=== PATIENT | male | born 1980 | race Caucasian/White ===

== ENCOUNTER 2019-12-16 12:58 | Inpatient (IN) | payer OTHER, MEDICARE, SELFPAY ==
[2019-12-16] VITALS (11 sets, daily range): BP systolic 112–145; BP diastolic 63–107; PULSE 80–142; RESP 10–18; TEMP 36.7–37.1; O2SAT 90–97; BMI 30.4
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
--- NOTE | 2019-12-16 13:06 | CT_ITS ---
EXAMINATION: CT BRAIN AND CT CERVICAL SPINE WITHOUT CONTRAST CLINICAL INFORMATION: Fall. COMPARISON: None TECHNIQUE: 5 mm thin axial and reformatted 2 mm thin sagittal and coronal images of brain were obtained without contrast. 3 mm thin axial and reformatted 2 mm thin sagittal and coronal images of cervical spine were obtained. DLP: 1599 mGy-cm FINDINGS: BRAIN: There is no acute intra-axial, extra-axial bleed, masses or midline shift. There is no acute infarction in evolution. The serrano to white matter differentiation is maintained. The lateral ventricles are symmetrical in size and shape. There is no enlargement. Bone windows reveal no calvarial abnormality. Bilateral paranasal sinuses and mastoid air cells are well aerated. There is no scalp lesion seen. CERVICAL SPINE: On sagittal reconstructed images there is maintained cervical lordosis. The vertebral heights, alignment and disc heights are normal. There is no visible acute fracture, dislocation or subluxation. The craniovertebral junction and the C1-C2 alignment is normal. There is mild posterior and ventral spondylosis C5-C6 disc level. The prevertebral soft tissues are normal. The airway is widely patent. There are numerous bilateral neck lymph nodes which appear within normal limits. The thyroid lobes are symmetrical. The central airway is widely patent. Bilateral mastoid sinuses are well aerated and clear. CT/CT cervical spine wo con IMPRESSION: No acute intracranial process seen. There is no acute fracture, dislocation or subluxation of cervical spine. Bilateral reactive lymph nodes, the largest lymph node level 3 and level 4 measures 7 mm in short axis.
--- NOTE | 2019-12-16 13:07 | ECG_ITS ---
Test Reason : OD Blood Pressure : / mmHG Vent. Rate : 132 BPM Atrial Rate : 092 BPM P-R Int : 000 ms QRS Dur : 114 ms QT Int : 344 ms P-R-T Axes : 000 087 -12 degrees QTc Int : 509 ms Atrial fibrillation with rapid ventricular response Intra-ventricular conduction delay Nonspecific ST abnormality Abnormal ECG No previous ECGs available Referred By: Marie Calderón Electronically Signed By:AMRIT DUVAL MD
--- NOTE | 2019-12-16 13:09 | XR_ITS ---
EXAMINATION: XR CHEST CLINICAL INFORMATION: Evaluate aspiration. COMPARISON: None TECHNIQUE: Frontal view of the chest was obtained. FINDINGS: The lungs are well-expanded and clear of acute process. The heart size and pulmonary vascularity is normal. No gross bony abnormality seen. XR/XR chest 1V IMPRESSION: Unremarkable chest exam.
[2019-12-16 13:18] LABS: Glucose, Whole Blood 185 mg/dL (60-115)
--- NOTE | 2019-12-16 13:24 | PC.NURSE ---
PT STATES HE HAS A RECENT TBI WITH SUBSEQUENT SEIZURES. HE STATES HE THINKS TODAY'S EVENTS MAY HAVE BEEN SEIZURE RELATED.
[2019-12-16 13:27] LABS: MANUAL DIFF FLAG NO
[2019-12-16 13:28] LABS: Basophils Absolute Auto 0.1 X10*3/uL (0.0-0.2); Basophils Percent Auto 0.9 % (0-2); Eosinophils Absolute Auto 0.1 X10*3/uL (0.0-0.4); Eosinophils Percent Auto 1.7 % (0-4); Hematocrit 52.2 % (42-52); Hemoglobin 16.9 g/dl (14.0-18.0); Imm Gran Abs Auto 0.06 X10*3/uL (0.00-0.03); Imm Gran Pct Auto 0.8 % (0.0-0.4); Lymphocytes Absolute Auto 3.1 X10*3/uL (1.2-4.9); Lymphocytes Percent Auto 40.1 % (20-40); Mean Corpuscular HGB Conc 32.4 g/dl (31.0-36.0); Mean Corpuscular Hemoglobin 30.6 pg (27.0-33.0); Mean Corpuscular Volume 94.6 fL (80-98); Mean Platelet Volume 8.6 fL (9.4-12.4); Monocytes Absolute Auto 0.4 X10*3/uL (0.1-1.2); Monocytes Percent Auto 5.1 % (2-11); Neutrophils Absolute Auto 3.9 X10*3/uL (2.0-8.3); Neutrophils Percent Auto 51.4 % (45-73); Platelet Count 289 X10*3/uL (160-400); Red Blood Count 5.52 X10*6/uL (4.60-5.80); Red Cell Distribution Width 15.4 % (11.0-16.0); White Blood Count 7.7 X10*3/uL (4.8-10.8)
[2019-12-16 13:33] LABS: INTERNATIONAL NORM RATIO 0.8 (0.9-1.1)
[2019-12-16 13:36] LABS: Partial Thromboplastin Time 26.4 SEC (24.1-38.0)
[2019-12-16 14:02] LABS: HCO3 VBG 25 mmol/L; PCO2 VBG 86 mmhg; PO2 VBG 41 mmhg
[2019-12-16 14:03] LABS: Base Excess VBG -7.6 mmol/L; Oxygen Saturation VBG 53.5 %
[2019-12-16] MEDS: 0.9 % Sodium Chloride 1,000 ML 999 ML IVCONT ×3 (14:03→18:00)
[2019-12-16] MEDS: dilTIAZem HCL 50 MG/10 ML VIAL 10 MG IVPUSH (14:04)
[2019-12-16] MEDS: ondansetron HCL 4 MG/2 ML VIAL IVPUSH ×3 (14:04→22:38)
[2019-12-16 14:05] LABS: pH VBG 7.08 (7.32-7.43)
--- NOTE | 2019-12-16 14:08 | CT_ITS ---
EXAMINATION: CT ANGIOGRAM OF THE CHEST WITH AND WITHOUT CONTRAST (CT PULMONARY ANGIOGRAM FOR PE) CLINICAL INFORMATION: Reason for Exam syncope, new onset afib r/o PE, dyspnea COMPARISON: Previous chest x-ray from earlier the same day TECHNIQUE: Prior to contrast administration, noncontrast localization images were obtained. Subsequently, multidetector volumetric imaging was performed from the thoracic inlet to below the diaphragms following the administration of 65 mLOmnipaque 350 intravenous contrast. No contrast reaction reported Sagittal, coronal, and MIP oblique sagittal reformatted images were obtained on the CT workstation, uploaded to PACS, and reviewed. This CT examination was performed using dose optimization techniques as appropriate, variously including the following: *Automated exposure control *Adjustment of mA and/or kV according to patient size (this includes techniques or standardized protocols for targeted exams where dose is matched to indication/reason for exam; i.e. extremities or head) *Use of iterative reconstruction technique Total exam dose-length product 569 mGy-cm FINDINGS: QUALITY OF STUDY/CONTRAST BOLUS: Satisfactory. PULMONARY ARTERIES: No central or segmental pulmonary emboli. THORACIC AORTA: No aneurysm or dissection. LUNG: There is atelectasis or small infiltrates at the lung bases. The lungs are otherwise clear. PLEURA: No pleural effusion or pneumothorax. MEDIASTINUM: The heart is slightly enlarged. No pericardial effusion. No hilar or mediastinal lymphadenopathy. No evidence of septal bowing or right heart strain. CHEST WALL/AXILLA: No axillary or internal mammary lymphadenopathy. OSSEOUS STRUCTURES: There are healing left posterior lateral sixth and seventh rib fractures. Bony structures are otherwise unremarkable. UPPER ABDOMEN: The liver is low in attenuation suggestive of fatty infiltration. No reflux of contrast into the hepatic veins to suggest elevated right heart pressures. CT/CT angio chest PE protocol IMPRESSION: No evidence of pulmonary embolism. Bilateral lower lobe atelectasis or small infiltrates. Slightly enlarged heart. Healing left rib fractures. Probable fatty liver. VTE: negative
[2019-12-16] MEDS: dilTIAZem HCL 125 MG in 0.9 % Sodium Chloride 100 ML 10 MG IVCONT (14:37)
[2019-12-16 14:43] LABS: Pt Ventilation O2% ROOM AIR
[2019-12-16 14:49] LABS: ABG PCO2 58 mmhg (32-45); pH ABG 7.21 (7.35-7.45)
[2019-12-16 14:50] LABS: Base Excess ABG -6.6; HCO3 ABG 22 mmol/l (22-26); Oxygen Saturation ABG 72.8 %
[2019-12-16 14:52] LABS: PO2 ABG 48 mmhg (83-108)
[2019-12-16 14:53] LABS: Ethanol 317 mg/dL
--- NOTE | 2019-12-16 14:53 | PC.NURSE ---
PT BECOMES HYPOXIC INTO THE 70S HE IS AROUSABLE BUT DIFFICULT TO KEEP AWAKE HE WAS PLACED ON 02 NC SUPPORT
[2019-12-16 14:57] LABS: Alanine Aminotransferase 199 U/L (0-40); Albumin Level 4.9 g/dL (3.5-5.0); Alkaline Phosphatase 100 U/L (39-117); Anion Gap 23 (12-20); Aspartate Amino Transferase 213 U/L (5-37); Bilirubin Direct 0.2 mg/dL (0.0-0.5); Bilirubin Total 0.3 mg/dL (0.0-1.0); Blood Urea Nitrogen 12 mg/dL (9-16); Calcium 7.9 mg/dL (8.4-10.2); Carbon Dioxide 24 mmol/L (22-29); Chloride 102 mmol/L (96-108); Creatinine Clr Calc Pharmacy 80.9; Estimated Glomerular Filt Rate 48; Glucose Random 145 mg/dL (60-115); Lipase 45 U/L (8-78); Magnesium 2.3 mg/dL (1.6-2.6); Potassium 3.8 mmol/l (3.3-5.1); Sodium 145 mmol/L (135-145); Total Protein 7.8 g/dL (6.5-8.0)
[2019-12-16] MEDS: iohexoL 350 MG/ML 100 ML INFUS..BTL IV (15:34)
[2019-12-16 16:41] LABS: Troponin-I High Sensitivity 19.9 ng/L (<3.5-35.0)
[2019-12-16 16:51] LABS: Lactic Acid 3.8 mmol/L (0.5-2.0)
[2019-12-16 17:15] LABS: Acetaminophen LAB < 1 mcg/mL (<30); Salicylate < 5.0 mg/dL (15-30)
[2019-12-16] MEDS: Piperacillin Sodium/Tazobactam 3.375 GM in 0.9 % Sodium Chloride 50 ML IV (17:59)
[2019-12-16] MEDS: 0.9 % Sodium Chloride 1,000 ML 500 ML IVCONT (18:04)
[2019-12-16] MEDS: Famotidine/PF 20 MG/2 ML VIAL IVPUSH (18:13)
[2019-12-16] MEDS: Morphine Sulfate 4 MG/ML CARTRIDGE IVPUSH (18:13)
[2019-12-16] MEDS: Metoprolol Tartrate 5 MG/5 ML VIAL IVPUSH (18:13)
--- NOTE | 2019-12-16 18:23 | PM.EVENT ---
Event Note Event Note: Patient seen and examined. Case discussed with MICHELLE Caba. Agree with her history and physical + plan as documented above in brief, 39-year-old male with a significant psychiatric history including PTSD and severe anxiety who presented to the hospital when he was found unresponsive by his friend. Upon arrival to the emergency room noted to be significantly tachycardic and with respiratory acidosis along with alcohol level greater than 300. ruled out for pulmonary embolism with a negative CTA, EKG consistent with atrial fibrillation with rapid ventricular response and started on Cardizem drip, given antibiotics for possible aspiration coverage, admission requested for multiple issues. Plan 1. A. fib w rvr -- cardizem gtt, trial of metoprolol; cardiology consult 2. Respiratory Acidosis -- likely 2/2 to excessive sedation from ? alcohol + benzos/gabapentin; he denies intentional ingestion. He denies illicit substances including opiates / cocaine 3. Chronic pain - IV morphine for now 4. EtOH intoxication -- monitor for withdrawal, phenobarb if needed 5. Mood -- continue his benzos 6. Remainder per H&P
[2019-12-16 18:30] LABS: Reflex Lactate? Lactic Acid Added
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
[2019-12-16 18:47] LABS: B Type Natriuretic Peptide < 10 pg/mL (<100)
[2019-12-16 18:59] LABS: SARS COV2 PCR INHOUSE NEGATIVE (Negative)
[2019-12-16 19:04] LABS: Thyroid Stimulating Hormone 1.32 mIU/mL (0.32-4.0)
--- NOTE | 2019-12-16 19:21 | PC.NURSE ---
change of shift report received from Castro martinez. pt appears to be in a nsr. 12 lead ekg obtained and confirmed nsr, dr west made aware and cardizem drip has been turned off. pt is making attempts to stand at the end of the bed while still attached to lines and cords. pt has been told mult times and forgets and is sorry. vitals stable.
--- NOTE | 2019-12-16 20:13 | PC.NURSE ---
nurse to nurse report given to Berenice martinez. hr remains at 81 nsr. vitals stable. pt sleeping on and off. 4l nc needed for sat drop to 84% on room air. pt has sleep apnea and states its the pain to his chest on inhale. Pt repositioned hob elevated and sat improved. pt is also a mouth breather.
[2019-12-16 21:50] LABS: ~Lactic Acid-LAB USE ONLY 3.4 mmol/L (0.5-2.0)
[2019-12-16 21:59] LABS: Troponin-I High Sensitivity 33.7 ng/L (<3.5-35.0)
[2019-12-16] MEDS: Lactated Ringers 1,000 ML 100 ML IVCONT (22:36)
[2019-12-16] MEDS: Gabapentin 600 MG TABLET PO (22:37)
[2019-12-16] MEDS: Morphine Sulfate 2 MG/ML CARTRIDGE IVPUSH (22:38)
[2019-12-16 23:16] LABS: Reflex Lactate? 2 Y
--- NOTE | 2019-12-17 | ECG_ITS ---
Test Reason : REPEAT Blood Pressure : / mmHG Vent. Rate : 078 BPM Atrial Rate : 078 BPM P-R Int : 184 ms QRS Dur : 128 ms QT Int : 386 ms P-R-T Axes : 062 070 040 degrees QTc Int : 440 ms Normal sinus rhythm Non-specific intra-ventricular conduction block Otherwise normal ECG When compared with ECG of 16-DEC-2019 13:06, Sinus rhythm has replaced Atrial fibrillation Vent. rate has decreased BY 54 BPM T wave inversion no longer evident in Inferior leads Referred By: Marie Calderón Electronically Signed By:AMRIT DUVAL MD
[2019-12-17] MEDS: 0.9 % Sodium Chloride Flush 3 ML SYRINGE IVFLUSH ×3 (01:01→16:22)
[2019-12-17] MEDS: Ampicillin Sodium/Sulbactam Na 1.5 GM in 0.9 % Sodium Chloride 100 ML IV ×2 (01:01→06:15)
[2019-12-17] MEDS: LORazepam 2 MG/ML VIAL 1 MG IVPUSH (02:24)
[2019-12-17] MEDS: Morphine Sulfate 2 MG/ML CARTRIDGE IVPUSH ×2 (02:48→09:09)
[2019-12-17 04:00] VITALS: BP 177/91; PULSE 104; RESP 19; TEMP 37.1; O2SAT 96
[2019-12-17 06:20] LABS: Hematocrit 41.4 % (42-52); Hemoglobin 13.4 g/dl (14.0-18.0); Mean Corpuscular HGB Conc 32.4 g/dl (31.0-36.0); Mean Corpuscular Volume 92.8 fL (80-98); Mean Platelet Volume 8.8 fL (9.4-12.4); Platelet Count 242 X10*3/uL (160-400); Red Blood Count 4.46 X10*6/uL (4.60-5.80); Red Cell Distribution Width 15.6 % (11.0-16.0); White Blood Count 6.8 X10*3/uL (4.8-10.8)
[2019-12-17 06:55] LABS: Alanine Aminotransferase 139 U/L (0-40); Albumin Level 4.2 g/dL (3.5-5.0); Alkaline Phosphatase 71 U/L (39-117); Anion Gap 15 (12-20); Aspartate Amino Transferase 103 U/L (5-37); Bilirubin Direct 0.3 mg/dL (0.0-0.5); Bilirubin Total 0.5 mg/dL (0.0-1.0); Blood Urea Nitrogen 10 mg/dL (9-16); Calcium 7.3 mg/dL (8.4-10.2); Carbon Dioxide 28 mmol/L (22-29); Chloride 100 mmol/L (96-108); Estimated Glomerular Filt Rate > 60; Glucose Random 77 mg/dL (60-115); Potassium 4.2 mmol/l (3.3-5.1); Sodium 139 mmol/L (135-145); Total Protein 6.6 g/dL (6.5-8.0)
[2019-12-17 08:00] VITALS: BP 168/75; PULSE 99; RESP 18; TEMP 36.6; O2SAT 97
[2019-12-17] MEDS: Flu Vacc QS2020-21(6mos up)/PF 0.5 ML SYRINGE IM (09:01)
[2019-12-17] MEDS: Gabapentin 600 MG TABLET PO ×2 (09:01→21:38)
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
--- NOTE | 2019-12-17 10:07 | MHC.CM.PN ---
Male 39 dx afib rvr etoh withdrawal. Pt is independent. He lives with his . DP home no services careteam resources will provide transportation.
[2019-12-17] MEDS: ALPRAZolam 0.5 MG TABLET 1 MG PO ×3 (10:52→21:45)
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
[2019-12-17 12:00] VITALS: BP 127/72; PULSE 75; RESP 18; TEMP 36.6; O2SAT 98
--- NOTE | 2019-12-17 12:22 | MHC.CARE ---
CARE Team met with Pt secondary to consult placed for alcohol use, depression/anxiety/ptsd . Pt reported he is currently connected with providers through the [facility] in [place], [place]. Pt reports he is currently receiving telehealth appts 2-3 times a week for support Pt has been on pyschiatric medicatiosn for roughly the plast 10 plus years. Pt reports he needs them for chronic pain and his PTSD symptoms. Pt reports some depression over the past few weeks after a recent concussion and fall which limited his activity level. Pt reported he is considering getting a [employer] [facility] due to his recent falls and his working long hours Pt declined needing additional mental health support. Pt reported he would like to find ways to be more connected to the community as he relatively recently relocated to [facility] and Pt and t/w discussed following up with [facility] regarding the options they had.
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
[2019-12-17 15:37] VITALS: BP 139/71; PULSE 83; RESP 20; TEMP 36.8; O2SAT 94
[2019-12-17 19:16] VITALS: BP 131/87; PULSE 86; RESP 18; TEMP 36.6; O2SAT 96
[2019-12-17] MEDS: Metoprolol Tartrate 25 MG TABLET PO (21:38)
[2019-12-18] VITALS: BP 134/77; PULSE 64; RESP 18; TEMP 37; O2SAT 95
[2019-12-18] MEDS: 0.9 % Sodium Chloride Flush 3 ML SYRINGE IVFLUSH ×2 (02:59→09:09)
[2019-12-18 03:34] VITALS: BP 151/77; PULSE 76; RESP 18; TEMP 37.1; O2SAT 97
[2019-12-18] MEDS: ALPRAZolam 0.5 MG TABLET 1 MG PO ×3 (04:15→12:29)
[2019-12-18 07:18] VITALS: BP 122/73; BP 147/94; PULSE 86; PULSE 88; RESP 18; TEMP 36.1; TEMP 36.7; O2SAT 92; O2SAT 97
[2019-12-18 09:09] VITALS: PULSE 108
[2019-12-18] MEDS: Metoprolol Tartrate 25 MG TABLET PO (09:09)
[2019-12-18] MEDS: Gabapentin 600 MG TABLET PO (09:09)
--- NOTE | 2019-12-18 11:29 | MHC.CARE ---
CARE Team met with Pt. Pt gave t/w verbal permission to speak with [facility].
--- NOTE | 2019-12-18 11:44 | MHC.CM.PN ---
DC today with resources from [facility]. Home with family transportation.
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
== END 2019-12-18 12:34 | disposition home or self-care (01) | DRG 308 ==
LOC: HO.ED 16:05 → HO.IMC 18:35
PROVIDERS: Physician Assistant Medical; Admitting Provider Family Medicine; Emergency Provider Emergency Medicine; PCP Internal Medicine; Visit Provider Family Medicine
DX: I48.91 Unspecified atrial fibrillation (principal); J96.02 Acute respiratory failure with hypercapnia; J96.01 Acute respiratory failure with hypoxia; E87.2 Acidosis; N17.9 Acute kidney failure, unspecified; F10.121 Alcohol abuse with intoxication delirium; F10.131 Alcohol abuse with withdrawal delirium; F43.10 Post-traumatic stress disorder, unspecified; R00.0 Tachycardia, unspecified; F10.129 Alcohol abuse with intoxication, unspecified; R74.01 Elevation of levels of liver transaminase levels; G89.29 Other chronic pain; Z23 Encounter for immunization; Z87.820 Personal history of traumatic brain injury; Z86.711 Personal history of pulmonary embolism; Z20.828 Contact with and (suspected) exposure to other viral communicable diseases; Z79.899 Other long term (current) drug therapy
CPT/HCPCS: 36415; 70450; 71045; 71275; 72125; 80048; 80076; 80320; 82550; 82803; 82947; 83605; 83690; 83735; 83880; 84443; 84484; 85025; 85027; 85610; 85730; 87040; 90686; 93005; 99285; G0480; J0295; J2060; J2270; J2405; J2543; Q9967; U0003

== ENCOUNTER 2020-01-03 21:29 | Emergency (ER) | payer OTHER, MEDICARE, SELFPAY ==
[2020-01-03 21:49] VITALS: BP 145/96; BP 149/99; PULSE 108; PULSE 120; RESP 20; TEMP 36.8; O2SAT 96; BMI 30.8
--- NOTE | 2020-01-03 21:58 | CT_ITS ---
EXAMINATION: CT HEAD WITHOUT CONTRAST CT CERVICAL SPINE WITHOUT CONTRAST CLINICAL INFORMATION: Fall. COMPARISON: CT head and CT cervical spine dated 12/16/2019. TECHNIQUE: Contiguous axial imaging was performed from the skull base to vertex without intravenous administration of contrast. Contiguous axial CT images of the cervical spine were obtained without contrast. Sagittal and coronal reformats were provided and reviewed. This CT examination was performed using dose optimization techniques as appropriate, variously including the following: *Automated exposure control. *Adjustment of mA and/or kV according to patient size (this includes techniques or standardized protocols for targeted exams where dose is matched to indication/reason for exam; i.e. extremities or head). *Use of iterative reconstruction technique. DLP: 1477 mGy-cm FINDINGS: HEAD: There is no evidence of acute intracranial hemorrhage or territorial infarction. No abnormal mass effect or midline shift is seen. Noll-fs-zmroh matter differentiation is well preserved. No extra-axial fluid collections are identified. The ventricles are normal in size. There is no abnormal attenuation within the brain parenchyma. The osseous structures and soft tissues are normal. The mastoid air cells and visualized portions of the paranasal sinuses are well aerated. CERVICAL SPINE: Normal vertebral body alignment. The normal cervical lordosis is maintained. No acute fracture or subluxation. No loss of vertebral body or intervertebral disc height. Unremarkable facet joints. No lytic or blastic osseous lesion. Unremarkable prevertebral soft tissues. No abnormal soft tissue mass or fluid collection. Thyroid within normal limits. Visualized lung apices are clear. No significant central canal or neural foraminal stenosis. CT/CT cervical spine wo con IMPRESSION: HEAD: No acute intracranial hemorrhage or mass effect. CERVICAL SPINE: No acute fracture or subluxation.
--- NOTE | 2020-01-03 21:58 | ECG_ITS ---
Test Reason : FALL Blood Pressure : / mmHG Vent. Rate : 097 BPM Atrial Rate : 097 BPM P-R Int : 176 ms QRS Dur : 112 ms QT Int : 366 ms P-R-T Axes : 064 080 033 degrees QTc Int : 464 ms Normal sinus rhythm RSR' or QR pattern in V1 suggests right ventricular conduction delay Abnormal ECG When compared with ECG of 16-DEC-2019 19:12, QRS duration has increased Referred By: Christian Sanderson Electronically Signed By:AMRIT DUVAL MD
[2020-01-03 22:00] VITALS: BP 135/79; PULSE 90; RESP 16; O2SAT 97
--- NOTE | 2020-01-03 22:02 | ED_ITS ---
HPI - Fall General Chief Complaint: Fall Stated Complaint: FALL,ETOH Time Seen by Provider: 01/03/20 21:49 Source: patient and EMS Mode of arrival: EMS Limitations: altered mental status History of Present Illness HPI Narrative: 39-year-old male. History fall with alcohol use today. Patient is a very poor historian secondary to intoxication. Will re-evaluate once more sober as per EMS patient fell down stairs after drinking Location of injury - extremities: right: forearm (Abrasion) Severity: mild Related Data Home Medications Medication Instructions Recorded Confirmed Belsomra 1 tab PO BEDTIME PRN 12/16/19 12/16/19 gabapentin 1 tab PO BID 12/16/19 12/16/19 Previous Rx's Medication Instructions Recorded alprazolam 1 mg PO 5XD PRN #10 tab 12/18/19 metoprolol tartrate 25 mg PO BID #60 tab 12/18/19 tramadol [Ultram] 50 mg PO BID PRN #10 tab 01/04/20 Allergies Allergy/AdvReac Type Severity Reaction Status Date / Time No Known Allergies Allergy Verified 12/16/19 13:06 Review of Systems Review of Systems: Yes Unobtainable due to mental status (Patient intoxicated) [facility] Past Medical History Medical History Anxiety Concussion PTSD (post-traumatic stress disorder) Pulmonary embolus TBI (traumatic brain injury) Traumatic injury Surgical History S/P laparotomy Social History Social History Household Members: Spouse Housing: House Alcohol intake: current Smoking Status: Never smoker Advance Directives: No service: Yes Current occupational status: unemployed Physical Exam Vital Signs: Vital Signs: Last Vital Signs Temp 98.3 F 01/03/20 21:49 Pulse 90 01/03/20 22:00 Resp 16 01/03/20 22:00 BP 135/79 01/03/20 22:00 Pulse Ox 97 01/03/20 22:00 Body Mass Index 30.8 Vital signs noted. On EKG at 21:58 patient's heart rate decreased to 97 beats per minute Appearance: Alert. Oriented X to. No acute distress. Intoxicated Eyes: Pupils equal, round and reactive to light. Slightly dilated ENT: Pharynx normal. Neck: Normal inspection. Neck supple. No lymph nodes noted. No crepitus CVS: Normal heart rate and rhythm. Pulses normal. Normal S1 and S2 Respiratory: No respiratory distress. Breath sounds normal. No Wheezing. No rales Abdomen: Soft and nontender. No rigidity. No distention. good BS x4, present of surgical scar Skin: Skin warm and dry. Normal skin color. Normal skin turgor. Extremities: No lower extremity edema. Neurovascular intact to all extremities. No Lacerations. No Rash abrasion to right forearm however no ecchymosis no deformity Neuro: Oriented X 2. No motor deficit. No sensory deficit. Moving all extermities. Slow speech however follows commands Course Course Course Narrative: Patient with history of EtOH abuse. Patient has been seen here for rapid AFib will check EKG laboratory work, place C-collar and patient check for cervical spine fracture or intracranial hemorrhage and re-evaluate once more sober Reevaluation(s) Reevaluation #1: CT scan showed no hemorrhage or cervical fracture. Cervical collar removed by me Reevaluation #2: Patient re-evaluated now much more sober. Patient states has been drinking alcohol today and fell down stairs. Patient alert and oriented x3. Patient states will call family member to pick him up. I discussed with him results of exams including splint application Time: 00:29 Procedures Orthopedic Splinting/Casting Injury #1: Side: left Upper Extremity Injury Location: hand Upper Extremity Immobilizer: sugar tong splint (Left) Additional Comments: Splint applied by it help desk technician. Post splint neurovascular check intact MDM - Fall MDM Narrative Medical decision making narrative: 40-year-old male without focal intoxication status post fall. Negative CT scan of brain and neck. However fracture of the left hand with splint application Lab Data Result diagrams: 01/03/20 22:12 01/03/20 22:12 Labs: Lab Results 01/03/20 01/03/20 01/03/20 Range/Units 22:12 22:12 22:12 WBC 5.7 (4.8-10.8) X10*3/uL RBC 5.63 D (4.60-5.80) X10*6/uL Hgb 17.5 D (14.0-18.0) g/dl Hct 50.5 D (42-52) % MCV 89.7 (80-98) fL MCH 31.1 (27.0-33.0) pg MCHC 34.7 (31.0-36.0) g/dl RDW 14.3 (11.0-16.0) % Plt Count 261 (160-400) X10*3/uL MPV 8.6 L (9.4-12.4) fL Immature Gran % (Auto) 0.4 (0.0-0.4) % Neut % (Auto) 58.0 (45-73) % Lymph % (Auto) 30.9 (20-40) % [place] % (Auto) 8.6 (2-11) % Eos % (Auto) 0.7 (0-4) % Baso % (Auto) 1.4 (0-2) % Lymph # (Auto) 1.8 (1.2-4.9) X10*3/uL [place] # (Auto) 0.5 (0.1-1.2) X10*3/uL Eos # (Auto) 0.0 (0.0-0.4) X10*3/uL Baso # (Auto) 0.1 (0.0-0.2) X10*3/uL Abs Immat Gran (auto) 0.02 (0.00-0.03) X10*3/uL Absolute Neuts (auto) 3.3 (2.0-8.3) X10*3/uL Absolute Nucleated RBC 0.000 (0.0-0.012) X10*3/uL Nucleated RBC % (auto) 0.0 (0.0-0.2) /100WBC Sodium 143 (135-145) mmol/L Potassium 4.1 (3.3-5.1) mmol/l Chloride 101 (96-108) mmol/L Carbon Dioxide 21 L (22-29) mmol/L Anion Gap 25 H (12-20) BUN 11 (9-16) mg/dL Creatinine 1.07 (0.5-1.4) mg/dL Estim Creat Clear Calc 124.1 Estimated GFR > 60 Random Glucose 74 (60-115) mg/dL Calcium 9.2 D (8.4-10.2) mg/dL Total Bilirubin 0.5 (0.0-1.0) mg/dL Direct Bilirubin 0.3 (0.0-0.5) mg/dL AST 137 H (5-37) U/L ALT 158 H (0-40) U/L Alkaline Phosphatase 86 D (39-117) U/L Troponin I High Sens 4.6 D (<3.5-35.0) ng/L Total Protein 8.1 H D (6.5-8.0) g/dL Albumin 5.1 H D (3.5-5.0) g/dL Lipase 31 (8-78) U/L Ethyl Alcohol mg/dL 01/03/20 Range/Units 22:12 WBC (4.8-10.8) X10*3/uL RBC (4.60-5.80) X10*6/uL Hgb (14.0-18.0) g/dl Hct (42-52) % MCV (80-98) fL MCH (27.0-33.0) pg MCHC (31.0-36.0) g/dl RDW (11.0-16.0) % Plt Count (160-400) X10*3/uL MPV (9.4-12.4) fL Immature Gran % (Auto) (0.0-0.4) % Neut % (Auto) (45-73) % Lymph % (Auto) (20-40) % [place] % (Auto) (2-11) % Eos % (Auto) (0-4) % Baso % (Auto) (0-2) % Lymph # (Auto) (1.2-4.9) X10*3/uL [place] # (Auto) (0.1-1.2) X10*3/uL Eos # (Auto) (0.0-0.4) X10*3/uL Baso # (Auto) (0.0-0.2) X10*3/uL Abs Immat Gran (auto) (0.00-0.03) X10*3/uL Absolute Neuts (auto) (2.0-8.3) X10*3/uL Absolute Nucleated RBC (0.0-0.012) X10*3/uL Nucleated RBC % (auto) (0.0-0.2) /100WBC Sodium (135-145) mmol/L Potassium (3.3-5.1) mmol/l Chloride (96-108) mmol/L Carbon Dioxide (22-29) mmol/L Anion Gap (12-20) BUN (9-16) mg/dL Creatinine (0.5-1.4) mg/dL Estim Creat Clear Calc Estimated GFR Random Glucose (60-115) mg/dL Calcium (8.4-10.2) mg/dL Total Bilirubin (0.0-1.0) mg/dL Direct Bilirubin (0.0-0.5) mg/dL AST (5-37) U/L ALT (0-40) U/L Alkaline Phosphatase (39-117) U/L Troponin I High Sens (<3.5-35.0) ng/L Total Protein (6.5-8.0) g/dL Albumin (3.5-5.0) g/dL Lipase (8-78) U/L Ethyl Alcohol 337 H* mg/dL ECG Data Attestation: I personally reviewed and interpreted this ECG as follows: Interpretation: 97 beats per minute. Normal sinus rhythm. Normal axis. No ST- T changes. Normal QRS interval Discharge Plan Discharge Clinical Impression: Fall Qualifiers: Encounter type: initial encounter Qualified Code(s): W19.XXXA - Unspecified fall, initial encounter Alcohol intoxication Qualifiers: Complication of substance-induced condition: uncomplicated Qualified Code(s): F10.920 - Alcohol use, unspecified with intoxication, uncomplicated Fracture of triquetrum of left wrist Qualifiers: Encounter type: initial encounter Fracture type: closed Fracture alignment: nondisplaced Qualified Code(s): S62.115A - Nondisplaced fracture of triquetrum [cuneiform] bone, left wrist, initial encounter for closed fracture Abrasion forearm Qualifiers: Encounter type: initial encounter Laterality: right Qualified Code(s): S50.811A - Abrasion of right forearm, initial encounter Patient Disposition: Home, Self-Care Instructions: Hand Fracture (ED), Abuse of Alcohol (ED), Splint Care (ED), Abrasion (ED), Fall Prevention (ED) Additional Instructions: Thank you for visiting the emergency department today. If your symptoms worsen or do not resolve completely please return to the emergency department immediately or call 911. if he have any questions please call your primary care physician. Do not remove her splint until seen by orthopedic doctor Prescriptions: New tramadol [Ultram] 50 mg tablet 50 mg PO BID PRN (Reason: pain) Qty: 10 RF: 0 No Action gabapentin 600 mg tablet 1 tab PO BID RF: 0 Belsomra 20 mg tablet 1 tab PO BEDTIME PRN (Reason: Insomnia) RF: 0 metoprolol tartrate 25 mg Tablet 25 mg PO BID Qty: 60 RF: 0 alprazolam 1 mg Tablet 1 mg PO 5XD PRN (Reason: Anxiety) Qty: 10 RF: 0 Referrals: Jules Martínez MD [Primary Care Provider] - 2 days Scooter Bar MD [Physician] - 2 days Interventions: ED Discharge Assessment Last Done: 01/04/20 00:55 Discharge Date/Time: 01/04/20 00:55
[2020-01-03 22:20] LABS: MANUAL DIFF FLAG NO
[2020-01-03 22:27] LABS: Basophils Absolute Auto 0.1 X10*3/uL (0.0-0.2); Basophils Percent Auto 1.4 % (0-2); Eosinophils Percent Auto 0.7 % (0-4); Hematocrit 50.5 % (42-52); Hemoglobin 17.5 g/dl (14.0-18.0); Imm Gran Abs Auto 0.02 X10*3/uL (0.00-0.03); Imm Gran Pct Auto 0.4 % (0.0-0.4); Lymphocytes Absolute Auto 1.8 X10*3/uL (1.2-4.9); Lymphocytes Percent Auto 30.9 % (20-40); Mean Corpuscular HGB Conc 34.7 g/dl (31.0-36.0); Mean Corpuscular Hemoglobin 31.1 pg (27.0-33.0); Mean Corpuscular Volume 89.7 fL (80-98); Mean Platelet Volume 8.6 fL (9.4-12.4); Monocytes Absolute Auto 0.5 X10*3/uL (0.1-1.2); Monocytes Percent Auto 8.6 % (2-11); Neutrophils Absolute Auto 3.3 X10*3/uL (2.0-8.3); Platelet Count 261 X10*3/uL (160-400); Red Blood Count 5.63 X10*6/uL (4.60-5.80); Red Cell Distribution Width 14.3 % (11.0-16.0); White Blood Count 5.7 X10*3/uL (4.8-10.8)
--- NOTE | 2020-01-03 22:42 | PC.NURSE ---
PT TO CT IN STRETCHER. PT URINATED IN URINAL AND THROW URINAL IN GARBAGE CAN. EXPLAINED TO PT WE NEED URINE SAMPLE.
--- NOTE | 2020-01-03 22:47 | XR_ITS ---
EXAMINATION: XR CHEST CLINICAL INFORMATION: Fall COMPARISON: 12/16/2019 TECHNIQUE: Frontal view of the chest was obtained. FINDINGS: Lung volumes are symmetric. No focal consolidation is seen. No evidence of pneumothorax, pleural effusion, or pulmonary edema. The cardiomediastinal contour is unremarkable. Redemonstrated healing left seventh rib fracture, also present on CT 12/16/2019. No new acute osseous findings are seen. XR/XR chest 1V IMPRESSION: No acute findings identified.
[2020-01-03 22:51] LABS: Troponin-I High Sensitivity 4.6 ng/L (<3.5-35.0)
[2020-01-03 22:53] LABS: Alanine Aminotransferase 158 U/L (0-40); Albumin Level 5.1 g/dL (3.5-5.0); Alkaline Phosphatase 86 U/L (39-117); Anion Gap 25 (12-20); Aspartate Amino Transferase 137 U/L (5-37); Bilirubin Direct 0.3 mg/dL (0.0-0.5); Bilirubin Total 0.5 mg/dL (0.0-1.0); Blood Urea Nitrogen 11 mg/dL (9-16); Calcium 9.2 mg/dL (8.4-10.2); Carbon Dioxide 21 mmol/L (22-29); Chloride 101 mmol/L (96-108); Creatinine Clr Calc Pharmacy 124.1; Estimated Glomerular Filt Rate > 60; Glucose Random 74 mg/dL (60-115); Lipase 31 U/L (8-78); Potassium 4.1 mmol/l (3.3-5.1); Sodium 143 mmol/L (135-145); Total Protein 8.1 g/dL (6.5-8.0)
--- NOTE | 2020-01-03 23:29 | XR_ITS ---
EXAMINATION: XR FOREARM, LEFT CLINICAL INFORMATION: Pain status post fall COMPARISON: None TECHNIQUE: AP and lateral views of the left forearm were obtained. FINDINGS: Faint calcifications projecting over the soft tissues dorsal to the carpus likely represent a periosteal avulsion fracture involving the triquetrum. No transcortical fractures. Osseous alignment otherwise maintained. No radiopaque foreign bodies. Soft tissue swelling dorsal to the carpus. XR/XR forearm LT 2V IMPRESSION: Tiny periosteal avulsion fracture involving the dorsal triquetrum. No additional fractures. Soft tissue swelling dorsal to the carpus.
[2020-01-03 23:31] LABS: Ethanol 337 mg/dL
[2020-01-04] MEDS: traMADoL HCL 50 MG TABLET PO (00:12)
== END 2020-01-04 00:55 | disposition home or self-care (01) ==
PROVIDERS: Emergency Provider Emergency Medicine; PCP Internal Medicine
DX: S62.115A Nondisplaced fracture of triquetrum [cuneiform] bone, left wrist, initial encounter for closed fracture (principal); S50.811A Abrasion of right forearm, initial encounter; G44.309 Post-traumatic headache, unspecified, not intractable; M79.601 Pain in right arm; F10.129 Alcohol abuse with intoxication, unspecified; W10.9XXA Fall (on) (from) unspecified stairs and steps, initial encounter; Y93.9 Activity, unspecified; Y92.9 Unspecified place or not applicable; Y99.9 Unspecified external cause status; Y90.8 Blood alcohol level of 240 mg/100 ml or more
CPT/HCPCS: 29125; 36415; 70450; 71045; 72125; 73090; 80048; 80076; 80320; 83690; 84484; 85025; 93005; 99284

== ENCOUNTER 2020-01-05 14:07 | Emergency (ER) | payer OTHER, MEDICARE, SELFPAY ==
[2020-01-05 14:39] VITALS: BP 144/89; PULSE 116; RESP 18; TEMP 36.7; O2SAT 99; BMI 30.8
--- NOTE | 2020-01-05 16:10 | ECG_ITS ---
Test Reason : ETOH Blood Pressure : / mmHG Vent. Rate : 091 BPM Atrial Rate : 091 BPM P-R Int : 190 ms QRS Dur : 120 ms QT Int : 386 ms P-R-T Axes : 086 048 054 degrees QTc Int : 474 ms Poor data quality Normal sinus rhythm Right atrial enlargement Non-specific intra-ventricular conduction delay Borderline ECG When compared with ECG of 03-JAN-2020 21:58, No significant change was found Referred By: Carolyn London Electronically Signed By:AMRIT DUVAL MD
--- NOTE | 2020-01-05 16:19 | ED_ITS ---
HPI - Alcohol General Chief Complaint: ETOH/Substance Use Stated Complaint: intoxication Time Seen by Provider: 01/05/20 15:35 Source: patient Mode of arrival: ambulatory Limitations: no limitations History of Present Illness HPI narrative: 40 y/o male with history of PTSD, chronic pain, alcohol abuse, hx paroxysmal afib, ETOH abuse who presents to the ED seeking alcohol detox. He has been drinking 1 pint of vodka per day for the last 4 weeks. He has withdrawal symptoms of tremor and anxiety if he does not drink in the morning. He states he got hit in the head with a tree branch when doing yard work 5 weeks ago which prompted his alcohol consumption. Prior to this he has been sober since 2011. He denies palpitations, chest pain, abdominal pain. Denies illicit drug use. Related Data Home Medications Medication Instructions Recorded Confirmed Belsomra 1 tab PO BEDTIME PRN 12/16/19 12/16/19 gabapentin 1 tab PO BID 12/16/19 12/16/19 Previous Rx's Medication Instructions Recorded alprazolam 1 mg PO 5XD PRN #10 tab 12/18/19 metoprolol tartrate 25 mg PO BID #60 tab 12/18/19 tramadol [Ultram] 50 mg PO BID PRN #10 tab 01/04/20 Allergies Allergy/AdvReac Type Severity Reaction Status Date / Time No Known Allergies Allergy Verified 12/16/19 13:06 Review of Systems Review of Systems: Constitutional: No Fever, No Chills ENT/Mouth: No sore throat, No Rhinorrhea, No Swallowing Difficulty Eyes: No Eye Pain, No Swelling, No Redness Cardiovascular: No Chest Pain, No SOB, No Orthopnea, No Edema Respiratory: No Cough, No Sputum, No Wheezing, No dyspnea Gastrointestinal: No Nausea, No Vomiting, No Diarrhea, No abdominal Pain, No Hematochezia, No Melena Genitourinary: No Dysuria, No Urinary Frequency, No Hematuria Musculoskeletal: No joint pain, No Myalgias Skin: No Skin Lesions, No rash Neuro: No Weakness, No Numbness, No Dizziness, No Headache Psych: + Anxiety/Panic, + Depression Heme/Lymph: No Bruising, No Lymphadenopathy Endocrine: No Polyuria, No Polydipsia PMFSH Past Medical History Attestation statement: The following information was validated with the patient. Medical History Anxiety Concussion PTSD (post-traumatic stress disorder) Pulmonary embolus TBI (traumatic brain injury) Traumatic injury Surgical History S/P laparotomy Social History Social History Household Members: Spouse Housing: House Alcohol intake: current Smoking Status: Never smoker Advance Directives: No Advance Directives Information Provided: No service: Yes Current occupational status: unemployed Physical Exam Vital Signs: Vital Signs: Last Vital Signs Temp 98.0 F 01/05/20 14:39 Pulse 116 H 01/05/20 14:39 Resp 18 01/05/20 14:39 BP 144/89 H 01/05/20 14:39 Pulse Ox 99 01/05/20 14:39 Body Mass Index 30.8 Appearance: Alert. Oriented X3. No acute distress. Appears intoxicated Eyes: Pupils equal, round and reactive to light. ENT: Pharynx normal. Neck: Normal inspection. Neck supple. CVS: Normal heart rate and rhythm. Pulses normal. Respiratory: No respiratory distress. Breath sounds normal. Abdomen: Soft and nontender. +BS x4. well healed abdominal scars consistent with prior surgeries Skin: Skin warm and dry. Normal skin color. Normal skin turgor. No rashes. Extremities: No lower extremity edema. Neuro: Oriented X 3. No motor deficit. No sensory deficit. Course Course Course Narrative: 40 y/o male presenting with alcohol intoxication and dependence, seeking detox. ETOH level 300's. LFTs slightly more elevated than prior. No N/V or abdiminal pain (beyond his baseline - hx chronic pain due to several surgeries). Given ativan now for complaints of anxiety and withdrawal. job coaching has been paged. Will sign out to Maral Levi NP. Consultations Consultation #1: CARE team retail performance coach MDM - Alcohol Differential Diagnosis Differential diagnosis: Likely alcohol dependence, alcohol withdrawal delirium, hypomagnesemia, alcohol intoxication, alcohol ketoacidosis, alcohol withdrawal syndrome and alcohol withdrawal seizure Lab Data Result diagrams: 01/05/20 16:15 01/05/20 16:15 Labs: Lab Results 01/05/20 01/05/20 01/05/20 Range/Units 15:44 16:15 16:15 WBC 5.3 (4.8-10.8) X10*3/uL RBC 5.55 (4.60-5.80) X10*6/uL Hgb 17.0 (14.0-18.0) g/dl Hct 49.5 (42-52) % MCV 89.2 (80-98) fL MCH 30.6 (27.0-33.0) pg MCHC 34.3 (31.0-36.0) g/dl RDW 14.2 (11.0-16.0) % Plt Count 242 (160-400) X10*3/uL MPV 8.5 L (9.4-12.4) fL Immature Gran % (Auto) 0.2 (0.0-0.4) % Neut % (Auto) 54.8 (45-73) % Lymph % (Auto) 32.5 (20-40) % [place] % (Auto) 9.0 (2-11) % Eos % (Auto) 2.4 (0-4) % Baso % (Auto) 1.1 (0-2) % Lymph # (Auto) 1.7 (1.2-4.9) X10*3/uL [place] # (Auto) 0.5 (0.1-1.2) X10*3/uL Eos # (Auto) 0.1 (0.0-0.4) X10*3/uL Baso # (Auto) 0.1 (0.0-0.2) X10*3/uL Abs Immat Gran (auto) 0.01 (0.00-0.03) X10*3/uL Absolute Neuts (auto) 2.9 (2.0-8.3) X10*3/uL Absolute Nucleated RBC 0.000 (0.0-0.012) X10*3/uL Nucleated RBC % (auto) 0.0 (0.0-0.2) /100WBC Sodium 141 (135-145) mmol/L Potassium 4.2 (3.3-5.1) mmol/l Chloride 101 (96-108) mmol/L Carbon Dioxide 23 (22-29) mmol/L Anion Gap 21 H (12-20) BUN 10 (9-16) mg/dL Creatinine 1.09 (0.5-1.4) mg/dL Estim Creat Clear Calc 120.6 Estimated GFR > 60 Random Glucose 142 H D (60-115) mg/dL Calcium 8.9 (8.4-10.2) mg/dL Total Bilirubin 0.8 (0.0-1.0) mg/dL Direct Bilirubin 0.3 (0.0-0.5) mg/dL AST 281 H (5-37) U/L ALT 330 H (0-40) U/L Alkaline Phosphatase 85 (39-117) U/L Total Protein 7.8 (6.5-8.0) g/dL Albumin 4.8 (3.5-5.0) g/dL Ethyl Alcohol mg/dL Coronavirus (PCR) NEGATIVE (Negative) Influenza Type A (PCR) NEGATIVE (Negative) Influenza Type B (PCR) NEGATIVE (Negative) RSV RNA Qual (PCR) NEGATIVE (Negative) 01/05/20 Range/Units 16:15 WBC (4.8-10.8) X10*3/uL RBC (4.60-5.80) X10*6/uL Hgb (14.0-18.0) g/dl Hct (42-52) % MCV (80-98) fL MCH (27.0-33.0) pg MCHC (31.0-36.0) g/dl RDW (11.0-16.0) % Plt Count (160-400) X10*3/uL MPV (9.4-12.4) fL Immature Gran % (Auto) (0.0-0.4) % Neut % (Auto) (45-73) % Lymph % (Auto) (20-40) % [place] % (Auto) (2-11) % Eos % (Auto) (0-4) % Baso % (Auto) (0-2) % Lymph # (Auto) (1.2-4.9) X10*3/uL [place] # (Auto) (0.1-1.2) X10*3/uL Eos # (Auto) (0.0-0.4) X10*3/uL Baso # (Auto) (0.0-0.2) X10*3/uL Abs Immat Gran (auto) (0.00-0.03) X10*3/uL Absolute Neuts (auto) (2.0-8.3) X10*3/uL Absolute Nucleated RBC (0.0-0.012) X10*3/uL Nucleated RBC % (auto) (0.0-0.2) /100WBC Sodium (135-145) mmol/L Potassium (3.3-5.1) mmol/l Chloride (96-108) mmol/L Carbon Dioxide (22-29) mmol/L Anion Gap (12-20) BUN (9-16) mg/dL Creatinine (0.5-1.4) mg/dL Estim Creat Clear Calc Estimated GFR Random Glucose (60-115) mg/dL Calcium (8.4-10.2) mg/dL Total Bilirubin (0.0-1.0) mg/dL Direct Bilirubin (0.0-0.5) mg/dL AST (5-37) U/L ALT (0-40) U/L Alkaline Phosphatase (39-117) U/L Total Protein (6.5-8.0) g/dL Albumin (3.5-5.0) g/dL Ethyl Alcohol 311 H* mg/dL Coronavirus (PCR) (Negative) Influenza Type A (PCR) (Negative) Influenza Type B (PCR) (Negative) RSV RNA Qual (PCR) (Negative) ECG Data Attestation: I personally reviewed and interpreted this ECG as follows: ECG interpretation date: 01/05/20 Interpretation: normal sinus rhythm with nonspecific intraventicular conduction delay, HR 91 bpm, normal QTc. artifact present. Discharge Plan Discharge Clinical Impression: Transaminitis Alcoholic intoxication Qualifiers: Complication of substance-induced condition: uncomplicated Qualified Code(s): F10.920 - Alcohol use, unspecified with intoxication, uncomplicated Prescriptions: No Action gabapentin 600 mg tablet 1 tab PO BID RF: 0 Belsomra 20 mg tablet 1 tab PO BEDTIME PRN (Reason: Insomnia) RF: 0 metoprolol tartrate 25 mg Tablet 25 mg PO BID Qty: 60 RF: 0 alprazolam 1 mg Tablet 1 mg PO 5XD PRN (Reason: Anxiety) Qty: 10 RF: 0 tramadol [Ultram] 50 mg tablet 50 mg PO BID PRN (Reason: pain) Qty: 10 RF: 0
[2020-01-05 16:23] LABS: MANUAL DIFF FLAG NO
[2020-01-05 16:25] LABS: Basophils Absolute Auto 0.1 X10*3/uL (0.0-0.2); Basophils Percent Auto 1.1 % (0-2); Eosinophils Absolute Auto 0.1 X10*3/uL (0.0-0.4); Eosinophils Percent Auto 2.4 % (0-4); Hematocrit 49.5 % (42-52); Imm Gran Abs Auto 0.01 X10*3/uL (0.00-0.03); Imm Gran Pct Auto 0.2 % (0.0-0.4); Lymphocytes Absolute Auto 1.7 X10*3/uL (1.2-4.9); Lymphocytes Percent Auto 32.5 % (20-40); Mean Corpuscular HGB Conc 34.3 g/dl (31.0-36.0); Mean Corpuscular Hemoglobin 30.6 pg (27.0-33.0); Mean Corpuscular Volume 89.2 fL (80-98); Mean Platelet Volume 8.5 fL (9.4-12.4); Monocytes Absolute Auto 0.5 X10*3/uL (0.1-1.2); Neutrophils Absolute Auto 2.9 X10*3/uL (2.0-8.3); Neutrophils Percent Auto 54.8 % (45-73); Platelet Count 242 X10*3/uL (160-400); Red Blood Count 5.55 X10*6/uL (4.60-5.80); Red Cell Distribution Width 14.2 % (11.0-16.0); White Blood Count 5.3 X10*3/uL (4.8-10.8)
[2020-01-05 16:30] LABS: Influenza A PCR NEGATIVE (Negative); Influenza B PCR NEGATIVE (Negative); Resp Syncy Virus RNA Qual PCR NEGATIVE (Negative); SARS COV2 PCR INHOUSE NEGATIVE (Negative)
[2020-01-05] MEDS: LORazepam 2 MG/ML VIAL 1 MG IVPUSH (16:55)
[2020-01-05 16:56] LABS: Ethanol 311 mg/dL
[2020-01-05 16:58] LABS: Alanine Aminotransferase 330 U/L (0-40); Albumin Level 4.8 g/dL (3.5-5.0); Alkaline Phosphatase 85 U/L (39-117); Anion Gap 21 (12-20); Aspartate Amino Transferase 281 U/L (5-37); Bilirubin Direct 0.3 mg/dL (0.0-0.5); Bilirubin Total 0.8 mg/dL (0.0-1.0); Blood Urea Nitrogen 10 mg/dL (9-16); Calcium 8.9 mg/dL (8.4-10.2); Carbon Dioxide 23 mmol/L (22-29); Chloride 101 mmol/L (96-108); Creatinine Clr Calc Pharmacy 120.6; Estimated Glomerular Filt Rate > 60; Glucose Random 142 mg/dL (60-115); Potassium 4.2 mmol/l (3.3-5.1); Sodium 141 mmol/L (135-145); Total Protein 7.8 g/dL (6.5-8.0)
[2020-01-05 17:19] LABS: Amphetamine Screen Urine Not Detected (Not Detect); Barbiturates, Urine Not Detected (Not Detect); Benzodiazepines Screen Urine POSITIVE (Not Detect); Cannabinoid Screen Urine Not Detected (Not Detect); Cocaine Screen Urine Not Detected (Not Detect); Opiate Screen Urine Not Detected (Not Detect); Phencyclidine Screen Urine Not Detected (Not Detect)
[2020-01-05 17:41] VITALS: BP 147/75; PULSE 87; RESP 18; TEMP 36.4; O2SAT 94
[2020-01-05] MEDS: 0.9 % Sodium Chloride 1,000 ML 999 ML IVCONT (17:41)
[2020-01-05 18:11] VITALS: BP 131/87; PULSE 86; RESP 16; TEMP 36.4; O2SAT 96
--- NOTE | 2020-01-05 19:36 | PC.NURSE ---
IV REMOVED FROM RIGHT AC PER RN . SMALL AMT OF BLEEDING,PRESSURE APPLIED TO SITE . PATIENT WAITING FOR DISCHARGE PAPERWORK AT THIS TIME
== END 2020-01-05 19:56 | disposition home or self-care (01) ==
PROVIDERS: Physician Assistant; Emergency Provider Emergency Medicine Emergency Medical Services; PCP Internal Medicine
DX: F10.129 Alcohol abuse with intoxication, unspecified (principal); R74.01 Elevation of levels of liver transaminase levels; G89.29 Other chronic pain; Y90.8 Blood alcohol level of 240 mg/100 ml or more; Z79.899 Other long term (current) drug therapy; Z11.59 Encounter for screening for other viral diseases
CPT/HCPCS: 0241U; 36415; 80048; 80076; 80307; 80320; 85025; 93005; 96361; 96374; 99284; J2060

== ENCOUNTER 2020-09-27 13:09 | Emergency (ER) | payer MEDICARE, OTHER, SELFPAY ==
[2020-09-27 14:36] VITALS: BP 112/63; PULSE 64; RESP 18; TEMP 35.9; O2SAT 98; BMI 32.1
--- NOTE | 2020-09-27 15:24 | ED.GENADULT ---
HPI - General Adult General Chief complaint: General Medical Stated complaint: crisis eval Time Seen by Provider: 09/27/20 14:08 Source: patient Mode of arrival: ambulatory Limitations: no limitations History of Present Illness HPI narrative: Patient's history of PTSD on tapering dose of benzo and started on SSRI which is not sweating him does not feel safe at home denied any suicidal ideation or homicidal feelings. Denies any significant depression or anxiety. Also have chronic nerve pain the right foot taking gabapentin for this no recent injury Related Data Home Medications Medication Instructions Recorded Confirmed gabapentin 600 mg tablet 1 tab PO BID 12/16/19 12/16/19 suvorexant 20 mg tablet (Belsomra) 1 tab PO BEDTIME PRN 12/16/19 12/16/19 Previous Rx's Medication Instructions Recorded alprazolam 1 mg tablet 1 mg PO 5XD PRN #10 tab 12/18/19 metoprolol tartrate 25 mg tablet 25 mg PO BID #60 tab 12/18/19 tramadol 50 mg tablet (Ultram) 50 mg PO BID PRN #10 tab 01/04/20 Allergies Allergy/AdvReac Type Severity Reaction Status Date / Time No Known Allergies Allergy Verified 12/16/19 13:06 Review of Systems Review of Systems: Constitutional : No Fever, No Chills ENT/Mouth : No Ear Pain, No Nasal Congestion, No sore throat Eyes: No Eye Pain, No Swelling, No Redness Cardiovascular : No Chest Pain, No SOB Respiratory : No Cough, No Sputum, No Dyspnea Gastrointestinal : No Nausea, No Vomiting, No Diarrhea, No Hematochezia, No Melena Genitourinary : No Dysuria, No Urinary Frequency, No Hematuria Musculoskeletal : No Myalgias Skin : No Skin Lesions, No rash Neuro : No Weakness, No Numbness, No Paresthesias, No Dizziness, No Headache Psych : positive Anxiety, positive Depression, denies SI/HI Heme/Lymph: No Lymphadenopathy Endocrine : No Polyuria, No Polydipsia PMFSH Past Medical History Medical History Anxiety Concussion PTSD (post-traumatic stress disorder) Pulmonary embolus TBI (traumatic brain injury) Traumatic injury Surgical History S/P laparotomy Social History Social History Household Members: Spouse Housing: House Do you presently have visiting nurse or other home services: No Alcohol intake: current Alcohol intake frequency: former alcohol drinker Alcohol type: hard liquor Advance Directives: No Advance Directives Information Provided: Yes service: Yes Current occupational status: unemployed Physical Exam Vital Signs: Vital Signs: Last Vital Signs Temp 96.6 F L 09/27/20 14:36 Pulse 64 09/27/20 14:36 Resp 18 09/27/20 14:36 BP 112/63 09/27/20 14:36 Pulse Ox 98 09/27/20 14:36 Body Mass Index 32.1 Appearance: Alert. Oriented X3. No acute distress. Eyes: PERRLA, No Nystagmus ENT: Pharynx normal. Oral Mucosa moist Neck: Normal inspection. Neck supple. CVS: Normal heart rate and rhythm. Pulses normal. Respiratory: No respiratory distress. Equal air entry bilateral, no wheezing/rales/rhonchi Abdomen: Soft and nontender. Bowel sounds are present, no mass palpable, no CVA tenderness Skin: Skin warm and dry. Normal skin color. Normal skin turgor. Extremities: No lower extremity edema. No calf tenderness Neuro: Oriented X 3. No motor deficit. No sensory deficit.No cerebellar signs , cranial nerves II-XII intact Psych: Calm and cooperative mood stable denies any suicidal or homicidal ideation no hallucination or delusions Discharge Plan Discharge Clinical Impression: Chronic post-traumatic stress disorder (PTSD) Prescriptions: No Action gabapentin 600 mg tablet 1 tab PO BID RF: 0 Belsomra 20 mg tablet 1 tab PO BEDTIME PRN (Reason: Insomnia) RF: 0 metoprolol tartrate 25 mg Tablet 25 mg PO BID Qty: 60 RF: 0 alprazolam 1 mg Tablet 1 mg PO 5XD PRN (Reason: Anxiety) Qty: 10 RF: 0 tramadol [Ultram] 50 mg tablet 50 mg PO BID PRN (Reason: pain) Qty: 10 RF: 0
[2020-09-27] MEDS: traMADoL HCL 50 MG TABLET PO (16:13)
[2020-09-27] MEDS: ALPRAZolam 0.5 MG TABLET PO (16:14)
[2020-09-27 16:32] LABS: COVID-19 Test Negative (Negative)
[2020-09-27 17:03] LABS: MANUAL DIFF FLAG NO
[2020-09-27 17:04] LABS: Basophils Absolute Auto 0.1 X10*3/uL (0.0-0.2); Basophils Percent Auto 0.9 % (0-2); Eosinophils Absolute Auto 0.1 X10*3/uL (0.0-0.4); Eosinophils Percent Auto 1.9 % (0-4); Hematocrit 49.7 % (42-52); Hemoglobin 16.9 g/dl (14.0-18.0); Imm Gran Abs Auto 0.01 X10*3/uL (0.00-0.03); Imm Gran Pct Auto 0.2 % (0.0-0.4); Lymphocytes Absolute Auto 1.5 X10*3/uL (1.2-4.9); Mean Corpuscular Hemoglobin 30.8 pg (27.0-33.0); Mean Corpuscular Volume 90.7 fL (80-98); Mean Platelet Volume 8.6 fL (9.4-12.4); Monocytes Absolute Auto 0.6 X10*3/uL (0.1-1.2); Monocytes Percent Auto 8.6 % (2-11); Neutrophils Absolute Auto 4.1 X10*3/uL (2.0-8.3); Neutrophils Percent Auto 64.4 % (45-73); Platelet Count 250 X10*3/uL (160-400); Red Blood Count 5.48 X10*6/uL (4.60-5.80); Red Cell Distribution Width 13.5 % (11.0-16.0); White Blood Count 6.4 X10*3/uL (4.8-10.8)
[2020-09-27 17:34] LABS: Ethanol < 10 mg/dL
[2020-09-27 17:37] LABS: Alanine Aminotransferase 45 U/L (0-40); Albumin Level 4.4 g/dL (3.5-5.0); Alkaline Phosphatase 67 U/L (39-117); Anion Gap 14 (12-20); Aspartate Amino Transferase 28 U/L (5-37); Bilirubin Direct 0.4 mg/dL (0.0-0.5); Blood Urea Nitrogen 12 mg/dL (9-16); Calcium 9.6 mg/dL (8.4-10.2); Carbon Dioxide 26 mmol/L (22-29); Chloride 104 mmol/L (96-108); Creatinine Clr Calc Pharmacy 117.6; Estimated Glomerular Filt Rate > 60; Glucose Random 103 mg/dL (60-115); Potassium 4.5 mmol/L (3.3-5.1); Sodium 139 mmol/L (135-145)
--- NOTE | 2020-09-27 21:02 | MHC.CARE ---
CARE team evaluated pt. Cleared for discharge. Encouraged to return to ED if bx health symptoms persist or worsen.
== END 2020-09-27 21:23 | disposition home or self-care (01) ==
PROVIDERS: Emergency Provider Internal Medicine
DX: F43.12 Post-traumatic stress disorder, chronic (principal); Z20.822 Contact with and (suspected) exposure to COVID-19
CPT/HCPCS: 36415; 80048; 80076; 82077; 85025; 87635; 99283; 99284

== ENCOUNTER 2020-10-26 17:21 | Emergency (ER) | payer OTHER, MEDICARE, SELFPAY ==
[2020-10-26 18:06] VITALS: BP 127/84; PULSE 90; RESP 18; O2SAT 98; BMI 32.1
--- NOTE | 2020-10-26 18:08 | ED.ALCOHOL ---
HPI - Alcohol General Chief Complaint: ETOH/Substance Use Stated Complaint: ETOH, SEEKING DETOX Time Seen by Provider: 10/26/20 18:07 History of Present Illness HPI narrative: Patient 40-year-old male with a history ETOH. Presented today with having altered mental status after drinking. Patient wants detox. Denies any suicidal homicidal ideation. Denies any other recreational drug use. Related Data Home Medications Medication Instructions Recorded Confirmed gabapentin 600 mg tablet 1 tab PO TID 09/27/20 09/27/20 ondansetron HCl 4 mg tablet 1 tab PO QID PRN 09/27/20 09/27/20 triazolam 0.25 mg tablet 2 tab PO BEDTIME 09/27/20 09/27/20 Previous Rx's Medication Instructions Recorded alprazolam 1 mg tablet 1 mg PO 5XD PRN #10 tab 12/18/19 Allergies Allergy/AdvReac Type Severity Reaction Status Date / Time No Known Allergies Allergy Verified 12/16/19 13:06 Review of Systems Review of Systems: Patient unable to answer detailed review systems secondary to being intoxicated [facility] Past Medical History Attestation statement: The following information was validated with the patient. Source: unable to obtain Medical History Anxiety Concussion PTSD (post-traumatic stress disorder) Pulmonary embolus TBI (traumatic brain injury) Traumatic injury Surgical History S/P laparotomy Social History Social History Household Members: Spouse Housing: House Do you presently have visiting nurse or other home services: No Alcohol intake: current Alcohol intake frequency: 3 or more drinks per day Alcohol type: hard liquor Patient Tobacco Use Status: Current someday Tobacco user Substance Use Type: Marijuana Advance Directives: No Advance Directives Information Provided: No service: Yes Current occupational status: unemployed Physical Exam Vital Signs: Vital Signs: Last Vital Signs Resp 18 10/26/20 18:06 Body Mass Index 32.1 Appearance: Alert. Oriented X3. No acute distress. Eyes: Pupils equal, round and reactive to light. ENT: Pharynx normal. Neck: Normal inspection. Neck supple. No lymph nodes noted. No crepitus CVS: Normal heart rate and rhythm. Pulses normal. Normal S1 and S2 Respiratory: No respiratory distress. Breath sounds normal. No Wheezing. No rales Abdomen: Soft and nontender. No rigidity. No distention. good BS x4 Skin: Skin warm and dry. Normal skin color. Normal skin turgor. Extremities: No lower extremity edema. Neurovascular intact to all extremities. No Lacerations. No Rash Neuro: Oriented X 3. No motor deficit. No sensory deficit. Moving all extermities. No slurred speech MDM - Alcohol MDM Narrative Medical decision making narrative: Baseline labs ordered. Will get behavior call or contact centre coach to evaluate patient for possible detox placement. Substance abuse call or contact centre coach not present. Patient's alcohol is approximately 120. Monitor in the emergency department. Will discharge patient home. A list of detox will be provided by the case management team. In stable condition. Differential Diagnosis Differential diagnosis: Likely alcohol dependence Lab Data Attestation: I reviewed the patient's lab results. Result diagrams: 10/26/20 18:23 10/26/20 18:23 Labs: Lab Results 10/26/20 10/26/20 10/26/20 Range/Units 18:23 18:23 18:23 WBC 4.9 (4.8-10.8) X10*3/uL RBC 5.20 (4.60-5.80) X10*6/uL Hgb 16.2 (14.0-18.0) g/dl Hct 47.4 (42-52) % MCV 91.2 (80-98) fL MCH 31.2 (27.0-33.0) pg MCHC 34.2 (31.0-36.0) g/dl RDW 14.8 (11.0-16.0) % Plt Count 194 (160-400) X10*3/uL MPV 8.5 L (9.4-12.4) fL Immature Gran % (Auto) 0.6 H (0.0-0.4) % Neut % (Auto) 45.9 (45-73) % Lymph % (Auto) 42.0 H (20-40) % [place] % (Auto) 9.1 (2-11) % Eos % (Auto) 1.2 (0-4) % Baso % (Auto) 1.2 (0-2) % Lymph # (Auto) 2.1 (1.2-4.9) X10*3/uL [place] # (Auto) 0.5 (0.1-1.2) X10*3/uL Eos # (Auto) 0.1 (0.0-0.4) X10*3/uL Baso # (Auto) 0.1 (0.0-0.2) X10*3/uL Abs Immat Gran (auto) 0.03 (0.00-0.03) X10*3/uL Absolute Neuts (auto) 2.3 (2.0-8.3) X10*3/uL Absolute Nucleated RBC 0.000 (0.0-0.012) X10*3/uL Nucleated RBC % (auto) 0.0 (0.0-0.2) /100WBC Sodium 143 (135-145) mmol/L Potassium 3.9 (3.3-5.1) mmol/L Chloride 107 (96-108) mmol/L Carbon Dioxide 26 (22-29) mmol/L Anion Gap 14 (12-20) BUN 6 L (9-16) mg/dL Creatinine 1.17 (0.5-1.4) mg/dL Estim Creat Clear Calc 114.6 Estimated GFR > 60 Random Glucose 114 (60-115) mg/dL Calcium 9.1 (8.4-10.2) mg/dL Total Bilirubin 0.6 (0.0-1.0) mg/dL Direct Bilirubin 0.2 (0.0-0.5) mg/dL AST 62 H (5-37) U/L ALT 60 H (0-40) U/L Alkaline Phosphatase 62 (39-117) U/L Total Protein 7.3 (6.5-8.0) g/dL Albumin 4.5 (3.5-5.0) g/dL Ethyl Alcohol 119 mg/dL Discharge Plan Discharge Clinical Impression: Alcoholic intoxication Patient Disposition: Home, Self-Care Instructions: Abuse of Alcohol (ED) Prescriptions: No Action gabapentin 600 mg tablet 1 tab PO TID RF: 0 triazolam 0.25 mg tablet 2 tab PO BEDTIME RF: 0 ondansetron HCl 4 mg tablet 1 tab PO QID PRN (Reason: nausea) RF: 0 alprazolam 1 mg Tablet 1 mg PO 5XD PRN (Reason: Anxiety) Qty: 10 RF: 0 Referrals: Physician,Unknown [Primary Care Provider] - 2 days (Please go to detox. Please stop drinking. Drinking too much can kill you.)
[2020-10-26 18:31] LABS: MANUAL DIFF FLAG NO
[2020-10-26 18:48] LABS: Ethanol 119 mg/dL
[2020-10-26 18:53] LABS: Alanine Aminotransferase 60 U/L (0-40); Albumin Level 4.5 g/dL (3.5-5.0); Alkaline Phosphatase 62 U/L (39-117); Anion Gap 14 (12-20); Aspartate Amino Transferase 62 U/L (5-37); Bilirubin Direct 0.2 mg/dL (0.0-0.5); Bilirubin Total 0.6 mg/dL (0.0-1.0); Blood Urea Nitrogen 6 mg/dL (9-16); Calcium 9.1 mg/dL (8.4-10.2); Carbon Dioxide 26 mmol/L (22-29); Chloride 107 mmol/L (96-108); Creatinine Clr Calc Pharmacy 114.6; Estimated Glomerular Filt Rate > 60; Glucose Random 114 mg/dL (60-115); Potassium 3.9 mmol/L (3.3-5.1); Sodium 143 mmol/L (135-145); Total Protein 7.3 g/dL (6.5-8.0)
[2020-10-26 18:54] LABS: Basophils Absolute Auto 0.1 X10*3/uL (0.0-0.2); Basophils Percent Auto 1.2 % (0-2); Eosinophils Absolute Auto 0.1 X10*3/uL (0.0-0.4); Eosinophils Percent Auto 1.2 % (0-4); Hematocrit 47.4 % (42-52); Hemoglobin 16.2 g/dl (14.0-18.0); Imm Gran Abs Auto 0.03 X10*3/uL (0.00-0.03); Imm Gran Pct Auto 0.6 % (0.0-0.4); Lymphocytes Absolute Auto 2.1 X10*3/uL (1.2-4.9); Mean Corpuscular HGB Conc 34.2 g/dl (31.0-36.0); Mean Corpuscular Hemoglobin 31.2 pg (27.0-33.0); Mean Corpuscular Volume 91.2 fL (80-98); Mean Platelet Volume 8.5 fL (9.4-12.4); Monocytes Absolute Auto 0.5 X10*3/uL (0.1-1.2); Monocytes Percent Auto 9.1 % (2-11); Neutrophils Absolute Auto 2.3 X10*3/uL (2.0-8.3); Neutrophils Percent Auto 45.9 % (45-73); Platelet Count 194 X10*3/uL (160-400); Red Cell Distribution Width 14.8 % (11.0-16.0); White Blood Count 4.9 X10*3/uL (4.8-10.8)
[2020-10-26 19:02] LABS: COVID-19 Test Negative (Negative)
[2020-10-26] MEDS: Ketorolac Tromethamine 15 MG/ML VIAL IVPUSH (19:16)
== END 2020-10-26 19:51 | disposition home or self-care (01) ==
PROVIDERS: Emergency Provider Emergency Medicine Emergency Medical Services
DX: F10.129 Alcohol abuse with intoxication, unspecified (principal); Y90.5 Blood alcohol level of 100-119 mg/100 ml; F17.210 Nicotine dependence, cigarettes, uncomplicated; Z20.822 Contact with and (suspected) exposure to COVID-19; Z71.6 Tobacco abuse counseling; Z79.899 Other long term (current) drug therapy
CPT/HCPCS: 36415; 80048; 80076; 82077; 85025; 87635; 99284; J1885

== ENCOUNTER 2021-01-20 10:42 | Inpatient (IN) | payer MEDICARE, OTHER, SELFPAY ==
[2021-01-20] MEDS: Haloperidol Lactate 5 MG/ML VIAL IM (10:50)
[2021-01-20] MEDS: LORazepam 2 MG/ML VIAL IM ×2 (10:50→20:52)
[2021-01-20 10:56] VITALS: BP 123/82; PULSE 95; RESP 16; TEMP 36.7; O2SAT 98; BMI 29.8
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
--- NOTE | 2021-01-20 11:15 | PC.NURSE ---
pt very agitated at this time. pt is able to be redirected. pt accepted im meds to engage in his care. pt acknowledges he is getting increasingly agitated and security leaving bed side. pt reports having some drinks and arguing with his .
[2021-01-20 11:30] LABS: Imm Gran Abs Auto 0.01 X10*3/uL (0.00-0.03); Imm Gran Pct Auto 0.2 % (0.0-0.4); MANUAL DIFF FLAG SCAN; PLT CLUMP 1; Red Cell Distribution Width 12.4 % (11.0-16.0); SCAN SMEAR FLAG 1
[2021-01-20 11:32] LABS: Eosinophils Absolute Auto 0.1 X10*3/uL (0.0-0.4); Eosinophils Percent Auto 1.2 % (0-4); Hematocrit 44.8 % (42.0-52.0); Hemoglobin 15.6 g/dl (14.0-18.0); Lymphocytes Absolute Auto 1.7 X10*3/uL (1.2-4.9); Lymphocytes Percent Auto 40.7 % (20-40); Mean Corpuscular HGB Conc 34.8 g/dl (31.0-36.0); Mean Corpuscular Hemoglobin 31.1 pg (27.0-33.0); Mean Corpuscular Volume 89.4 fL (80.0-98.0); Mean Platelet Volume 9.5 fL (9.4-12.4); Monocytes Absolute Auto 0.3 X10*3/uL (0.1-1.2); Monocytes Percent Auto 8.2 % (2-11); Neutrophils Percent Auto 48.7 % (45-73); Red Blood Count 5.01 X10*6/uL (4.60-5.80)
[2021-01-20 11:36] LABS: White Blood Count 4.2 X10*3/uL (4.8-10.8)
[2021-01-20 11:46] LABS: Ethanol 226 mg/dL
[2021-01-20 11:50] LABS: Alanine Aminotransferase 43 U/L (0-40); Albumin Level 4.3 g/dL (3.5-5.0); Alkaline Phosphatase 60 U/L (39-117); Anion Gap 15 (12-20); Aspartate Amino Transferase 37 U/L (5-37); Bilirubin Total 0.5 mg/dL (0.0-1.0); Blood Urea Nitrogen 10 mg/dL (9-16); Calcium 8.9 mg/dL (8.4-10.2); Carbon Dioxide 24 mmol/L (22-29); Chloride 109 mmol/L (96-108); Creatinine Clr Calc Pharmacy 116.6; Estimated Glomerular Filt Rate > 60; Glucose Random 125 mg/dL (60-115); Potassium 3.9 mmol/L (3.3-5.1); Sodium 144 mmol/L (135-145)
[2021-01-20] MEDS: Ketorolac Tromethamine 30 MG/ML VIAL IVPUSH (11:53)
[2021-01-20 11:55] LABS: Platelet Count 180 X10*3/uL (160-400)
[2021-01-20 11:56] LABS: SLIDE REVIEW VERIFIED
--- NOTE | 2021-01-20 12:00 | PC.NURSE ---
pt medicated per emar. pt resting in bed. service dog remains at bedside.
--- NOTE | 2021-01-20 14:40 | PC.NURSE ---
care team going to attempt to connect with pt.
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
--- NOTE | 2021-01-20 16:10 | MHC.CARE ---
Per Pts therapist he has had COVID twice and recently experiencing flu like symptoms. RN made aware.
[2021-01-20 16:26] LABS: COVID-19 Test Negative (Negative); IDNOW Serial# 9DD0AD1C
--- NOTE | 2021-01-20 17:49 | PHA.MEDREC ---
MED REC COMPLETE, BASED ON LIST FROM [facility] AND [facility] Pharmacy Consult ? Medication Reconciliation Pharmacy has completed the medication reconciliation.
--- NOTE | 2021-01-20 18:46 | MHC.RECOVSUP ---
? Reason for consult: o ? ? ?Current location: [facility]? o ? ? ?Identified substance use concern: ?Alcoholism - Support ? ?Intervention: o Community resources provided o Harm reduction discussion ? Plan: o Patient awaiting crisis evaluation ? Additional information:?I was able to connect with patient and gave him recovery resources in the community along with harm reduction strategies. Patient wasn't interested in detox or treatment at this time. Patient is waiting for evaluation from Care Team.
[2021-01-20 19:03] LABS: Amphetamine Screen Urine Not Detected (Not Detect); Barbiturates, Urine Not Detected (Not Detect); Benzodiazepines Screen Urine POSITIVE (Not Detect); Cannabinoid Screen Urine POSITIVE (Not Detect); Cocaine Screen Urine POSITIVE (Not Detect); Fentanyl, urine Not Detected (Not Detect); Opiate Screen Urine Not Detected (Not Detect); Phencyclidine Screen Urine Not Detected (Not Detect)
[2021-01-20 19:29] VITALS: BP 140/82; PULSE 95
[2021-01-20] MEDS: cloNIDine HCL 0.1 MG TABLET 0.3 MG PO (19:29)
[2021-01-20] MEDS: ALPRAZolam 0.5 MG TABLET 1 MG PO (19:30)
[2021-01-20] MEDS: Gabapentin 600 MG TABLET 1200 MG PO (19:30)
[2021-01-20] MEDS: Haloperidol Lactate 5 MG/ML VIAL 10 MG IM (20:52)
[2021-01-20 22:00] VITALS: RESP 20; O2SAT 95
[2021-01-21] VITALS (7 sets, daily range): BP systolic 93–137; BP diastolic 50–94; PULSE 47–96; RESP 14–17; TEMP 36.3–36.9; O2SAT 95–98; BMI 33.9
[2021-01-21] MEDS: Mirtazapine 7.5 MG TABLET PO ×2 (01:14→19:57)
[2021-01-21] MEDS: OLANZapine 10 MG TABLET PO (01:15)
[2021-01-21] MEDS: cloNIDine HCL 0.1 MG TABLET 0.3 MG PO ×2 (01:18→19:58)
[2021-01-21] MEDS: ALPRAZolam 0.5 MG TABLET 1 MG PO ×3 (01:32→19:57)
--- NOTE | 2021-01-21 01:35 | PC.NURSE ---
Patient medicated per APR Pt tolerated well Patient requesting dose of 1200 mg gabapentin now. Pharmacy made aware. Awaiting for pharmacy to put in one time order. Pt given blankets and pillows Pt at position of comfort Service dog at bedside
[2021-01-21] MEDS: Gabapentin 600 MG TABLET 1200 MG PO ×3 (02:03→19:57)
--- NOTE | 2021-01-21 02:10 | MHC.CARE ---
CARE team met with pt. Pt is an inpatient bedsearch at this time[facility] Pt is not aware of this plan as of yet. Pt will see CARE team tomorrow for a mental status update. Pt is aware he will be here for the night and will discuss plan further with him tomorrow. Pt reportedly has requested medications and has been in behavioral control medicated with the support of his service dog.
--- NOTE | 2021-01-21 03:03 | MHC.CARE ---
Addendum to assessment and Error. Pt's confirmed that pt does NOT have access to a firearm. Pt's is involved in pt's care and is available as needed if pt's service dog needs food.
--- NOTE | 2021-01-21 10:59 | PC.NURSE ---
Pt update status given pt's Donita: [phone]
[2021-01-21] MEDS: Gabapentin 600 MG TABLET PO (13:32)
--- NOTE | 2021-01-21 13:54 | PC.NURSE ---
calm and cooperative, alert, steady gait, medicated as ordered, dog in andf out of room and friendly w everyone
[2021-01-21] MEDS: hydrOXYzine HCL 50 MG TABLET PO (16:41)
--- NOTE | 2021-01-21 17:01 | PC.NURSE ---
Report given to Praveen WALDROP (neon sign erector on M5) extention [id number]
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
[2021-01-22] MEDS: ALPRAZolam 0.5 MG TABLET 1 MG PO ×4 (02:08→21:39)
[2021-01-22] MEDS: traZODone HCL 50 MG TABLET PO ×2 (02:09→21:38)
[2021-01-22] MEDS: hydrOXYzine HCL 25 MG TABLET PO ×2 (02:09→21:38)
[2021-01-22 06:00] VITALS: BP 140/88; PULSE 58; RESP 18; TEMP 36.4; O2SAT 95
[2021-01-22] MEDS: LORazepam 1 MG TABLET 2 MG PO (06:58)
[2021-01-22] MEDS: OLANZapine 10 MG TABLET PO (06:58)
[2021-01-22] MEDS: Gabapentin 600 MG TABLET 1200 MG PO ×2 (08:17→21:41)
[2021-01-22 08:36] VITALS: BP 118/73; PULSE 55
[2021-01-22] MEDS: Gabapentin 600 MG TABLET PO (12:32)
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
[2021-01-22 17:40] VITALS: BP 129/78; PULSE 90; RESP 16; TEMP 35.9; O2SAT 97
[2021-01-22 21:35] VITALS: BP 135/84; PULSE 92
[2021-01-22] MEDS: Mirtazapine 7.5 MG TABLET PO (21:39)
[2021-01-22 21:40] VITALS: BP 135/84; PULSE 92
[2021-01-22] MEDS: cloNIDine HCL 0.1 MG TABLET 0.3 MG PO (21:40)
[2021-01-23] MEDS: traZODone HCL 50 MG TABLET PO (01:40)
[2021-01-23] MEDS: ALPRAZolam 0.5 MG TABLET 1 MG PO ×4 (03:00→20:40)
[2021-01-23 06:00] VITALS: BP 103/57; PULSE 57; RESP 16; O2SAT 96
[2021-01-23] MEDS: Gabapentin 600 MG TABLET 1200 MG PO ×2 (09:54→20:37)
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
[2021-01-23] MEDS: Gabapentin 600 MG TABLET PO (14:24)
[2021-01-23 18:00] VITALS: BP 154/83; PULSE 89; RESP 18; TEMP 36.9; O2SAT 98
[2021-01-23 20:36] VITALS: BP 154/93; PULSE 89
[2021-01-23] MEDS: cloNIDine HCL 0.1 MG TABLET 0.3 MG PO (20:36)
[2021-01-23] MEDS: Mirtazapine 15 MG TABLET PO (20:37)
[2021-01-23] MEDS: hydrOXYzine HCL 25 MG TABLET PO (20:40)
[2021-01-24] MEDS: ALPRAZolam 0.5 MG TABLET 1 MG PO ×5 (01:00→20:33)
[2021-01-24 06:00] VITALS: BP 126/77; PULSE 78; RESP 18; TEMP 36.1; O2SAT 96
[2021-01-24] MEDS: Gabapentin 600 MG TABLET 1200 MG PO ×2 (09:09→20:27)
--- NOTE | 2021-01-24 10:01 | PC.NURSE ---
Patient reports never being a smoker
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
[2021-01-24] MEDS: Gabapentin 600 MG TABLET PO (12:19)
[2021-01-24 17:47] VITALS: BP 139/92; PULSE 95; TEMP 35.7; O2SAT 96
[2021-01-24 20:32] VITALS: BP 127/69; PULSE 75
[2021-01-24] MEDS: cloNIDine HCL 0.1 MG TABLET 0.3 MG PO (20:32)
[2021-01-24] MEDS: Mirtazapine 15 MG TABLET PO (20:33)
[2021-01-24] MEDS: hydrOXYzine HCL 25 MG TABLET PO (20:34)
[2021-01-25] MEDS: ALPRAZolam 0.5 MG TABLET 1 MG PO ×4 (00:50→09:25)
[2021-01-25 06:00] VITALS: BP 153/83; PULSE 64; TEMP 36.1; O2SAT 99
--- NOTE | 2021-01-25 06:41 | PC.NURSE ---
Addendum entered by Angelic Maurer RN 01/25/21 06:46: Put in pt's Xanax at 0050 in error manually. Original Note: Computer system went down at 0100. Put in pt's Xanax that was given at 0052 twice in error. Med only given once, at 0055.
[2021-01-25] MEDS: Gabapentin 600 MG TABLET 1200 MG PO (08:35)
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
== END 2021-01-25 10:20 | disposition home or self-care (01) | DRG 885 ==
LOC: HO.ED 01-21 13:20 → HO.PM5 01-21 17:29
PROVIDERS: Emergency Medicine; Admitting Provider Psychiatry & Neurology Psychiatry; Emergency Provider Emergency Medicine Emergency Medical Services; Visit Provider Psychiatry & Neurology Psychiatry
DX: F32.2 Major depressive disorder, single episode, severe without psychotic features (principal); R45.851 Suicidal ideations; R45.850 Homicidal ideations; Y90.7 Blood alcohol level of 200-239 mg/100 ml; F10.129 Alcohol abuse with intoxication, unspecified; F43.10 Post-traumatic stress disorder, unspecified; Y36.90XA War operations, unspecified, initial encounter; Z87.820 Personal history of traumatic brain injury; Z20.822 Contact with and (suspected) exposure to COVID-19; Z79.899 Other long term (current) drug therapy
CPT/HCPCS: 36415; 80053; 80307; 82077; 83735; 85025; 87635; 96372; 96374; 99285; J1885; J2060

== ENCOUNTER 2021-02-09 20:30 | Emergency (ER) | payer MEDICARE, OTHER, SELFPAY ==
--- NOTE | ~2021-02-09 | XR_ITS ---
EXAMINATION: XR chest 1V CLINICAL INFORMATION: Reason for Exam CPR, overdose COMPARISON: Chest radiograph 01/03/2020 TECHNIQUE: One view of the chest XR/XR chest 1V FINDINGS/IMPRESSION: Low lung volumes with bronchovascular crowding. No pneumothorax. No pleural effusion. Normal cardiomediastinal silhouette.
[2021-02-09 20:49] VITALS: BMI 26.5
--- NOTE | 2021-02-09 20:49 | ED.OVERDOSE ---
HPI - Overdose General Chief Complaint: Overdose Stated Complaint: OD (+covid), now conscious/alert Time Seen by Provider: 02/09/21 21:07 Source: patient and EMS Mode of arrival: EMS Limitations: no limitations History of Present Illness HPI Narrative: 41-year-old male presents via EMS after accidental overdose. States that 1 of his friends gave him a pill that he took because of COVID-19 symptoms. He does not know what the pill was. found him to be cyanotic on the floor, CPR was initiated. Once EMS arrived he was given Narcan and then woke up, became agitated and then eventually cooperative. MD complaint: accidental overdose Onset (ago): hour(s) (Within the hour of arrival) Timing confirmed by: spouse Context: Accidental Overdose: uncertain what happened Treatments Prior to Arrival: narcan Related Data Home Medications Medication Instructions Recorded Confirmed gabapentin 600 mg tablet 2 tab PO BID 09/27/20 01/20/21 alprazolam 1 mg tablet 1 mg PO QID PRN 01/20/21 01/20/21 clonidine HCl 0.3 mg tablet 0.3 mg PO BEDTIME 01/20/21 01/20/21 gabapentin 600 mg tablet 600 mg PO DAILY@1200 01/20/21 01/20/21 Previous Rx's Medication Instructions Recorded mirtazapine 15 mg tablet 15 mg PO BEDTIME 30 Days #30 tab 01/24/21 Allergies Allergy/AdvReac Type Severity Reaction Status Date / Time trazodone AdvReac Severe priaprism Verified 01/23/21 11:28 Review of Systems Review of Systems: Constitutional: No Fever, No Chills ENT/Mouth: No sore throat, No Rhinorrhea Eyes: No Eye Pain, No Swelling, No Redness Cardiovascular: No Chest Pain, No SOB Respiratory: No Cough, No Sputum Gastrointestinal: No Nausea, No Vomiting, No Diarrhea, No abdominal Pain Genitourinary: No Dysuria, No Hematuria Musculoskeletal: No joint pain, No Myalgias, No Joint Swelling Skin: No Skin Lesions, No rash Neuro: No Weakness, No Numbness, No Loss of Consciousness, No Dizziness, No Headache Psych: Positive accidental overdose, No Anxiety, No Depression, No SI/HI/AH/VH Heme/Lymph: No Bruising, No Bleeding,No Lymphadenopathy Endocrine: No Polyuria, No Polydipsia Yes all other systems are reviewed and are negative PMFSH Past Medical History Attestation statement: The following information was validated with the patient. Source: old records reviewed Medical History Alcohol abuse Alcohol use disorder, severe, dependence Anxiety Concussion Major depress dis, severe PTSD (post-traumatic stress disorder) Pulmonary embolus Suicide ideation TBI (traumatic brain injury) Traumatic injury Surgical History S/P laparotomy Social History Social History Household Members: Spouse Housing: House Unable to assess alcohol history related to: Refusing to respond Alcohol intake: current Alcohol intake frequency: 3 or more drinks per day Alcohol type: hard liquor Patient Tobacco Use Status: Tobacco use Unknown Substance Use Type: Marijuana Advance Directives: No service: Yes ([employer] ) Current occupational status: unemployed Sexual orientation: Did not discuss Physical Exam Vital Signs: Vital Signs: Last Vital Signs Temp 99.6 F 02/09/21 22:59 Pulse 117 H 02/09/21 22:59 Resp 20 02/09/21 22:59 BP 147/99 H 02/09/21 22:59 Pulse Ox 94 02/09/21 22:59 BMI result Body Mass Index 26.5 Appearance: Alert. Oriented X3. No acute distress. Eyes: Pupils equal, round and reactive to light. No nystagmus. Sclerae nonicteric. ENT: Pharynx normal. Moist mucous membranes. Neck: Normal inspection. Neck supple. CVS: Normal heart rate and rhythm. Pulses normal. Respiratory: No respiratory distress. Breath sounds normal. Abdomen: Soft and nontender. Skin: Skin warm and dry. Normal skin color. Normal skin turgor. Extremities: No lower extremity edema. Moves all extremities against resistance. Neuro: No motor deficit. No sensory deficit. Cranial nerves 2-12 intact. Course Course Course Narrative: 41-year-old male presents via EMS for overdose. Unsure of what medication he took, not willing to give any information regarding who gave him the pill or why he even took an unknown pill for COVID-19 symptoms. He does have a significant history presenting for alcohol intoxication. Will order chest x-ray, EKG, and monitor for approximately 2 hours. Patient is COVID-19 positive. Chest x-ray is negative for fracture. EKG is normal sinus. Patient has been maintaining his O2 sats above 90%. Will discharge home. I did suggest detox or rehab however patient states he does not have problem. Patient verbalized understanding of and agrees to plan of care discharge home. MDM - Overdose Differential Diagnosis Differential diagnosis: Likely poisoning by opiate or related narcotic and drug overdose Medical Records Attestation: I reviewed the patient's medical records. Imaging Data Chest x-ray: Attestation: I personally reviewed and interpreted this imaging study as follows: Radiologist's impression: EXAMINATION: ?XR chest 1V CLINICAL INFORMATION: Reason for Exam CPR, overdose COMPARISON: Chest radiograph? 01/03/2020 TECHNIQUE: One view of the chest XR/XR chest 1V FINDINGS/IMPRESSION: ? Low lung volumes with bronchovascular crowding. ? No pneumothorax. No pleural effusion. ? Normal cardiomediastinal silhouette. ? ECG Data Attestation: I personally reviewed and interpreted this ECG as follows: ECG interpretation date: 02/09/21 ECG interpretation time: 21:42 Prior ECG tracings: available for review Interpretation: Vent. rate 99 BPM NE interval 172 ms QRS duration 106 ms QT/QTc 338/433 ms P-R-T axes 54 -8 27 Normal sinus rhythm Normal ECG When compared with ECG of 05-JAN-2020 16:40, Questionable change in QRS axis Discharge Plan Discharge Clinical Impression: Overdose, COVID-19 Patient Disposition: Home, Self-Care Instructions: Covid-19 Viral Syndrome and Novel Coronavirus (ED) Hey/Ath, Adult Overdose (ED), COVID-19 (Coronavirus Disease 2019) (ED) Additional Instructions: You were evaluated for accidental overdose. Please do not take random pills. Taking unknown medications can kill you. You required CPR and Narcan for resuscitation. Please consider detox. Chest x-ray is negative. EKG is normal sinus. You are COVID-19 positive. Please continue to maintain isolation guidelines for state and Federal regulations. Thank you for choosing this emergency department for evaluation. Please follow-up with primary care physician as needed. Return to the emergency department for any new, concerning, or worsening symptoms. Prescriptions: No Action gabapentin 600 mg tablet 2 tab PO BID RF: 0 gabapentin 600 mg tablet 600 mg PO DAILY@1200 RF: 0 clonidine HCl 0.3 mg Tablet 0.3 mg PO BEDTIME RF: 0 alprazolam 1 mg Tablet 1 mg PO QID PRN (Reason: Anxiety) RF: 0 mirtazapine 15 mg Tablet 15 mg PO BEDTIME 30 Days Qty: 30 RF: 0 Interventions: ED Discharge Assessment Last Done: 02/09/21 23:14 Discharge Date/Time: 02/09/21 23:16
--- NOTE | 2021-02-09 21:08 | ECG_ITS ---
Test Reason : ACCIDENTAL OD Blood Pressure : / mmHG Vent. Rate : 099 BPM Atrial Rate : 099 BPM P-R Int : 172 ms QRS Dur : 106 ms QT Int : 338 ms P-R-T Axes : 054 -08 027 degrees QTc Int : 433 ms Normal sinus rhythm Normal ECG When compared with ECG of 05-JAN-2020 16:40, Questionable change in QRS axis Referred By: Maral Kendall Electronically Signed By:Gomez Cortez
[2021-02-09 21:47] VITALS: BP 137/73; PULSE 109; RESP 18; TEMP 36.9; O2SAT 95
[2021-02-09 22:59] VITALS: BP 147/99; PULSE 117; RESP 20; TEMP 37.6; O2SAT 94
--- NOTE | 2021-02-09 23:12 | PC.NURSE ---
Andrew arrived via EMS s/p accidental overdose, states he thought he took a xanax foR anxiety but i guess it wasn'T . He denies SI or HI. He also states that he does not take opiates. He has remained calm and cooperative. No chest pain or SOB. PALAFOX x 4. He complains of aches and pains - covid symptpoms ' but otherwise has no complaintys. hi gait is steady. he has been provided DC inhstructions and his was in waiting room to bring him home. He verbalized an understanding of all DC orders and ambulated out of the ED independently anfd with steady gait.
== END 2021-02-09 23:16 | disposition home or self-care (01) ==
PROVIDERS: Emergency Provider Emergency Medicine Emergency Medical Services
DX: T40.2X1A Poisoning by other opioids, accidental (unintentional), initial encounter (principal); U07.1 COVID-19; Y92.9 Unspecified place or not applicable; Z79.899 Other long term (current) drug therapy; Z71.51 Drug abuse counseling and surveillance of drug abuser
CPT/HCPCS: 71045; 93005; 99285

== ENCOUNTER 2021-02-10 05:01 | Inpatient (IN) | payer OTHER, SELFPAY ==
[2021-02-10] VITALS (10 sets, daily range): BP systolic 109–155; BP diastolic 31–86; PULSE 75–204; RESP 11–16; TEMP 36.8–37.8; O2SAT 89–97; BMI 32.1
--- NOTE | ~2021-02-10 | CT_ITS ---
EXAMINATION: CT chest wo con. CLINICAL INFORMATION: Reason for Exam overdose found down COMPARISON: December 2019 TECHNIQUE: Multidetector volumetric CT imaging of the chest was done. Axial MIP volume rendering provided. Sagittal and coronal reformatted images were obtained. This CT examination was performed using dose optimization techniques as appropriate, variously including the following: *Automated exposure control *Adjustment of mA and/or kV according to patient size (this includes techniques or standardized protocols for targeted exams where dose is matched to indication/reason for exam; i.e. extremities or head) *Use of iterative reconstruction technique CONTRAST: Noncontrasted study. DLP: 1239 mGy-cm FINDINGS: SUPERINTENDENT CONSTRUCTION: LINES/TUBES: [employer]ician reviewed, no lines. LUNGS: Lung parenchyma: There are mild patchy interstitial infiltrate right upper lobe, right and left lower lobes presumably infection. Lung nodules/masses: There are no significant lung nodules. AIRWAYS: Trachea and bronchi are normal. PLEURA: No pleural effusion or pneumothorax. MEDIASTINUM AND LAURA: No mediastinal, hilar or axillary lymphadenopathy. No mediastinal mass. VESSELS: HEART AND PERICARDIUM: Thoracic aorta is normal in size. Heart is normal in size. No pericardial effusion. Pulmonary arteries are normal in size. LOWER NECK, AXILLA: The visualized thyroid gland is unremarkable. No axillary mass or adenopathy. VISUALIZED ABDOMEN: Unremarkable CHEST WALL AND BONES: No chest wall mass. The visualized bony thorax is within normal limits. CT/CT chest wo con IMPRESSION: *Multiple patchy interstitial groundglass and solid opacities likely mild infiltrates infection pneumonia. Could be aspiration.
--- NOTE | ~2021-02-10 | CT_ITS ---
CT head/brain wo con CLINICAL INFORMATION: Reason for Exam overdose found down COMPARISON: No prior CT scan available for comparison. TECHNIQUE: Department standard protocol. This CT examination was performed using dose optimization techniques as appropriate, variously including the following: *Automated exposure control *Adjustment of mA and/or kV according to patient size (this includes techniques or standardized protocols for targeted exams where dose is matched to indication/reason for exam; i.e. extremities or head) *Use of iterative reconstruction technique DLP: 815 mGy-cm FINDINGS: CEREBRAL HEMISPHERES: There is no evidence of intra-axial or extra-axial mass, hemorrhage or acute infarct. BRAIN PARENCHYMA: Normal serrano-white matter differentiation. SUBDURAL SPACE: No bleed. BASAL GANGLIA AND PINEAL GLAND: Unremarkable VENTRICLES: Symmetric and normal in size. CEREBELLUM AND BRAINSTEM: No space-occupying mass, hemorrhage or acute infarct. CEREBELLOPONTINE ANGLES: No lesion found. ORBITS: No intraorbital mass. VESSELS: Unremarkable SKULL BASE: Unremarkable INCLUDED SINUSES AT SKULL BASE: Clear SKULL AND SKIN: No fracture or bone lesion found. CT/CT head/brain wo con IMPRESSION: No CT evidence of intracranial space-occupying mass, bleed or infarct. Normal CT scan does not rule out the possibility of hyperacute infarct in the first 12 hours. If patient symptoms persist may consider correlation with MRI, which is more sensitive for early acute infarct.
--- NOTE | 2021-02-10 06:33 | ED.OVERDOSE ---
HPI - Overdose General Chief Complaint: Overdose Stated Complaint: OVERDOSE Time Seen by Provider: 02/10/21 06:31 Source: patient Mode of arrival: EMS Limitations: no limitations History of Present Illness HPI Narrative: took a pill from associate to help with his dx of COVID from [place] yesterday - seen yesterday for overdose as well on same pill complaint: accidental overdose Onset (ago): unknown Timing confirmed by: spouse How Overdose Was Discovered: other (found unresponsive) Context: Accidental Overdose: medication error Associated symptoms: shortness of breath and nausea/vomiting Treatments Prior to Arrival: oxygen, narcan and other (CPR x 1 min) Related Data Home Medications Medication Instructions Recorded Confirmed gabapentin 600 mg tablet 2 tab PO BID 09/27/20 02/10/21 alprazolam 1 mg tablet 1 mg PO QID PRN 01/20/21 02/10/21 clonidine HCl 0.3 mg tablet 0.3 mg PO BEDTIME 01/20/21 02/10/21 gabapentin 600 mg tablet 600 mg PO DAILY@1200 01/20/21 02/10/21 Previous Rx's Medication Instructions Recorded mirtazapine 15 mg tablet 15 mg PO BEDTIME 30 Days #30 tab 01/24/21 Allergies Allergy/AdvReac Type Severity Reaction Status Date / Time trazodone AdvReac Severe priaprism Verified 01/23/21 11:28 Review of Systems Review of Systems: Constitutional : No Weight loss, No Fever, pos Chills, No Fatigue, No Malaise ENT/Mouth : No sore throat, pos Rhinorrhea Eyes: No Eye Pain, No Swelling, No Redness Cardiovascular : No Chest Pain, No SOB, No Dyspnea on Exertion, No Orthopnea, No Edema, No Palpitations Respiratory : pos Cough, No Sputum, No Wheezing Gastrointestinal : No Nausea, No Vomiting, No Diarrhea, No Constipation, No abdominal Pain, No Hematochezia, No Melena Genitourinary : No Dysuria, No Urinary Frequency, No Hematuria, Musculoskeletal : No joint pain, No Myalgias, No Joint Swelling Skin : No Skin Lesions, No rash Neuro : pos Weakness, No Numbness, No Dizziness, No Headache Psych : No Anxiety/Panic, No Depression, no SI/HI Heme/Lymph: No Bruising, No Bleeding,No Lymphadenopathy Endocrine : No Polyuria, No Polydipsia All other systems reviewed and are negative PMFSH Past Medical History Medical History Alcohol abuse Alcohol use disorder, severe, dependence Anxiety Atrial fibrillation with RVR Concussion Major depress dis, severe PTSD (post-traumatic stress disorder) Pulmonary embolus Suicide ideation TBI (traumatic brain injury) Traumatic injury Surgical History S/P laparotomy Social History Social History Household Members: Spouse Housing: House Alcohol intake: current Patient Tobacco Use Status: Tobacco use Unknown Substance Use Type: Marijuana Advance Directives: No Advance Directives Information Provided: No service: Yes ([employer] [place]) Current occupational status: unemployed Sexual orientation: Did not discuss Physical Exam Vital Signs: Vital Signs: Last Vital Signs Temp 98.8 F 02/10/21 14:33 Pulse 79 02/10/21 14:33 Resp 12 02/10/21 14:33 BP 126/78 02/10/21 14:33 Pulse Ox 97 02/10/21 14:33 BMI result Body Mass Index 32.1 Appearance: Somnolent at times Oriented X3. No acute distress. Unfazed Eyes: Pupils equal, round and reactive to light. ENT: Pharynx normal. Neck: Normal inspection. Neck supple. CVS: tachycardic heart rate and rhythm. Pulses normal. Respiratory: No respiratory distress. Breath sounds decreased at bases Abdomen: Soft and non-tender. Skin: Skin warm and dry. Normal skin color. Normal skin turgor. Extremities: No lower extremity edema. No calf ttp Neuro: Oriented X 3. No motor deficit. No sensory deficit. Course Course Course Narrative: the patient is currently under section 12 as I am concerned he overdosed x 2 in 24 hours and he seems very uconcerned I want to be able to obtain a full medical workup, observe him and have crisis evaluate him prior to any possible DC as this is highly unusual and very concerning CT chest consistent with COVID viral pneumonia will repeat CPK and troponin at noon 89% on RA will start on dexamethasone MDM - Overdose MDM Narrative Medical decision making narrative: 41 yo male with very unusual presentation - just seen last night after overdose where he received some pills from an associate to treat his COVID 19 dx yesterday that resulted in CPR and overdose - he states he thinks he accidentally took another pill that was mixed up again with his gabapentin and again had 8mg IM narcan and CPR for 1 min at this time he seems somewhat unfazed that he had CPR x 2 in 24 hours. He denies SI. Will need tox labs, CT head/CT chest. IVF, EKG. At this point I might involve crisis since he has had two overdoses in 24 hours and he has a hx of TBI and PTSD. Lab Data Result diagrams: 02/10/21 08:40 02/10/21 14:30 Labs: Lab Results 02/10/21 02/10/21 02/10/21 Range/Units 08:20 08:20 08:20 WBC (4.8-10.8) X10*3/uL RBC (4.60-5.80) X10*6/uL Hgb (14.0-18.0) g/dl Hct (42.0-52.0) % MCV (80.0-98.0) fL MCH (27.0-33.0) pg MCHC (31.0-36.0) g/dl RDW (11.0-16.0) % Plt Count (160-400) X10*3/uL MPV (9.4-12.4) fL Immature Gran % (Auto) (0.0-0.4) % Neut % (Auto) (45-73) % Lymph % (Auto) (20-40) % Dickey % (Auto) (2-11) % Eos % (Auto) (0-4) % Baso % (Auto) (0-2) % Lymph # (Auto) (1.2-4.9) X10*3/uL Dickey # (Auto) (0.1-1.2) X10*3/uL Eos # (Auto) (0.0-0.4) X10*3/uL Baso # (Auto) (0.0-0.2) X10*3/uL Abs Immat Gran (auto) (0.00-0.03) X10*3/uL Absolute Neuts (auto) (2.0-8.3) x10*3/uL Absolute Nucleated RBC (0.0-0.012) X10*3/uL Nucleated RBC % (auto) (0.0-0.2) /100WBC PT (9.9-13.0) SEC INR (0.9-1.1) APTT (24.1-38.0) SEC VBG pH (7.32-7.43) VBG pCO2 mmHg VBG pO2 mmHg VBG HCO3 (22-26) mmol/L VBG O2 Saturation % VBG Base Excess mmol/L Sodium 139 (135-145) mmol/L Potassium 4.4 (3.3-5.1) mmol/L Chloride 102 (96-108) mmol/L Carbon Dioxide 31 H (22-29) mmol/L Anion Gap 10 L (12-20) BUN 12 (9-16) mg/dL Creatinine 1.40 (0.5-1.4) mg/dL Estim Creat Clear Calc 94.8 Estimated GFR 56 Random Glucose 127 H (60-115) mg/dL Lactic Acid (0.5-2.0) mmol/L Calcium 9.0 (8.4-10.2) mg/dL Magnesium 1.8 (1.6-2.6) mg/dL Ferritin (20-250) ng/mL Total Bilirubin 0.5 (0.0-1.0) mg/dL Direct Bilirubin 0.2 (0.0-0.5) mg/dL AST 64 H (5-37) U/L ALT 99 H (0-40) U/L Alkaline Phosphatase 48 (39-117) U/L Lactate Dehydrogenase (118-273) U/L Total Creatine Kinase 1061 H D (38-174) U/L Troponin I High Sens 30.8 (<3.5-35.0) ng/L C-Reactive Protein (< or = 0.50) mg/dL Total Protein 7.0 (6.5-8.0) g/dL Albumin 4.5 (3.5-5.0) g/dL Lipase 11 (8-78) U/L Procalcitonin ng/mL TSH (0.32-4.0) uIU/mL Salicylates (15-30) mg/dL Acetaminophen < 1 (<30) mcg/mL Ethyl Alcohol < 10 mg/dL COVID-19 (GEN) (Negative) COVID-19 Clin Com 02/10/21 02/10/21 02/10/21 Range/Units 08:40 08:40 08:40 WBC 9.3 (4.8-10.8) X10*3/uL RBC 4.82 (4.60-5.80) X10*6/uL Hgb 14.8 (14.0-18.0) g/dl Hct 42.9 (42.0-52.0) % MCV 89.0 (80.0-98.0) fL MCH 30.7 (27.0-33.0) pg MCHC 34.5 (31.0-36.0) g/dl RDW 12.5 (11.0-16.0) % Plt Count 211 (160-400) X10*3/uL MPV 9.6 (9.4-12.4) fL Immature Gran % (Auto) 0.3 (0.0-0.4) % Neut % (Auto) 77.4 H (45-73) % Lymph % (Auto) 15.6 L (20-40) % Dickey % (Auto) 6.5 (2-11) % Eos % (Auto) 0.1 (0-4) % Baso % (Auto) 0.1 (0-2) % Lymph # (Auto) 1.5 (1.2-4.9) X10*3/uL Dickey # (Auto) 0.6 (0.1-1.2) X10*3/uL Eos # (Auto) 0.0 (0.0-0.4) X10*3/uL Baso # (Auto) 0.0 (0.0-0.2) X10*3/uL Abs Immat Gran (auto) 0.03 (0.00-0.03) X10*3/uL Absolute Neuts (auto) 7.2 (2.0-8.3) x10*3/uL Absolute Nucleated RBC 0.000 (0.0-0.012) X10*3/uL Nucleated RBC % (auto) 0.0 (0.0-0.2) /100WBC PT 11.8 (9.9-13.0) SEC INR 1.0 (0.9-1.1) APTT 29.3 (24.1-38.0) SEC VBG pH (7.32-7.43) VBG pCO2 mmHg VBG pO2 mmHg VBG HCO3 (22-26) mmol/L VBG O2 Saturation % VBG Base Excess mmol/L Sodium (135-145) mmol/L Potassium (3.3-5.1) mmol/L Chloride (96-108) mmol/L Carbon Dioxide (22-29) mmol/L Anion Gap (12-20) BUN (9-16) mg/dL Creatinine (0.5-1.4) mg/dL Estim Creat Clear Calc Estimated GFR Random Glucose (60-115) mg/dL Lactic Acid (0.5-2.0) mmol/L Calcium (8.4-10.2) mg/dL Magnesium (1.6-2.6) mg/dL Ferritin (20-250) ng/mL Total Bilirubin (0.0-1.0) mg/dL Direct Bilirubin (0.0-0.5) mg/dL AST (5-37) U/L ALT (0-40) U/L Alkaline Phosphatase (39-117) U/L Lactate Dehydrogenase (118-273) U/L Total Creatine Kinase (38-174) U/L Troponin I High Sens (<3.5-35.0) ng/L C-Reactive Protein (< or = 0.50) mg/dL Total Protein (6.5-8.0) g/dL Albumin (3.5-5.0) g/dL Lipase (8-78) U/L Procalcitonin ng/mL TSH (0.32-4.0) uIU/mL Salicylates (15-30) mg/dL Acetaminophen (<30) mcg/mL Ethyl Alcohol mg/dL COVID-19 (GEN) Positive A (Negative) COVID-19 Clin Com See Note 02/10/21 02/10/21 02/10/21 Range/Units 08:40 08:40 08:40 WBC (4.8-10.8) X10*3/uL RBC (4.60-5.80) X10*6/uL Hgb (14.0-18.0) g/dl Hct (42.0-52.0) % MCV (80.0-98.0) fL MCH (27.0-33.0) pg MCHC (31.0-36.0) g/dl RDW (11.0-16.0) % Plt Count (160-400) X10*3/uL MPV (9.4-12.4) fL Immature Gran % (Auto) (0.0-0.4) % Neut % (Auto) (45-73) % Lymph % (Auto) (20-40) % Dickey % (Auto) (2-11) % Eos % (Auto) (0-4) % Baso % (Auto) (0-2) % Lymph # (Auto) (1.2-4.9) X10*3/uL Dickey # (Auto) (0.1-1.2) X10*3/uL Eos # (Auto) (0.0-0.4) X10*3/uL Baso # (Auto) (0.0-0.2) X10*3/uL Abs Immat Gran (auto) (0.00-0.03) X10*3/uL Absolute Neuts (auto) (2.0-8.3) x10*3/uL Absolute Nucleated RBC (0.0-0.012) X10*3/uL Nucleated RBC % (auto) (0.0-0.2) /100WBC PT (9.9-13.0) SEC INR (0.9-1.1) APTT (24.1-38.0) SEC VBG pH (7.32-7.43) VBG pCO2 mmHg VBG pO2 mmHg VBG HCO3 (22-26) mmol/L VBG O2 Saturation % VBG Base Excess mmol/L Sodium (135-145) mmol/L Potassium (3.3-5.1) mmol/L Chloride (96-108) mmol/L Carbon Dioxide (22-29) mmol/L Anion Gap (12-20) BUN (9-16) mg/dL Creatinine (0.5-1.4) mg/dL Estim Creat Clear Calc Estimated GFR Random Glucose (60-115) mg/dL Lactic Acid 1.2 (0.5-2.0) mmol/L Calcium (8.4-10.2) mg/dL Magnesium (1.6-2.6) mg/dL Ferritin (20-250) ng/mL Total Bilirubin (0.0-1.0) mg/dL Direct Bilirubin (0.0-0.5) mg/dL AST (5-37) U/L ALT (0-40) U/L Alkaline Phosphatase (39-117) U/L Lactate Dehydrogenase (118-273) U/L Total Creatine Kinase (38-174) U/L Troponin I High Sens (<3.5-35.0) ng/L C-Reactive Protein (< or = 0.50) mg/dL Total Protein (6.5-8.0) g/dL Albumin (3.5-5.0) g/dL Lipase (8-78) U/L Procalcitonin ng/mL TSH 0.52 (0.32-4.0) uIU/mL Salicylates < 5.0 L (15-30) mg/dL Acetaminophen (<30) mcg/mL Ethyl Alcohol mg/dL COVID-19 (GEN) (Negative) COVID-19 Clin Com 02/10/21 02/10/21 02/10/21 Range/Units 08:47 11:51 11:51 WBC (4.8-10.8) X10*3/uL RBC (4.60-5.80) X10*6/uL Hgb (14.0-18.0) g/dl Hct (42.0-52.0) % MCV (80.0-98.0) fL MCH (27.0-33.0) pg MCHC (31.0-36.0) g/dl RDW (11.0-16.0) % Plt Count (160-400) X10*3/uL MPV (9.4-12.4) fL Immature Gran % (Auto) (0.0-0.4) % Neut % (Auto) (45-73) % Lymph % (Auto) (20-40) % Dickey % (Auto) (2-11) % Eos % (Auto) (0-4) % Baso % (Auto) (0-2) % Lymph # (Auto) (1.2-4.9) X10*3/uL Dickey # (Auto) (0.1-1.2) X10*3/uL Eos # (Auto) (0.0-0.4) X10*3/uL Baso # (Auto) (0.0-0.2) X10*3/uL Abs Immat Gran (auto) (0.00-0.03) X10*3/uL Absolute Neuts (auto) (2.0-8.3) x10*3/uL Absolute Nucleated RBC (0.0-0.012) X10*3/uL Nucleated RBC % (auto) (0.0-0.2) /100WBC PT (9.9-13.0) SEC INR (0.9-1.1) APTT (24.1-38.0) SEC VBG pH 7.38 (7.32-7.43) VBG pCO2 49 mmHg VBG pO2 43 mmHg VBG HCO3 30 H (22-26) mmol/L VBG O2 Saturation 69.0 % VBG Base Excess 4.0 mmol/L Sodium (135-145) mmol/L Potassium (3.3-5.1) mmol/L Chloride (96-108) mmol/L Carbon Dioxide (22-29) mmol/L Anion Gap (12-20) BUN (9-16) mg/dL Creatinine (0.5-1.4) mg/dL Estim Creat Clear Calc Estimated GFR Random Glucose (60-115) mg/dL Lactic Acid (0.5-2.0) mmol/L Calcium (8.4-10.2) mg/dL Magnesium (1.6-2.6) mg/dL Ferritin (20-250) ng/mL Total Bilirubin (0.0-1.0) mg/dL Direct Bilirubin (0.0-0.5) mg/dL AST (5-37) U/L ALT (0-40) U/L Alkaline Phosphatase (39-117) U/L Lactate Dehydrogenase (118-273) U/L Total Creatine Kinase 1017 H (38-174) U/L Troponin I High Sens 28.4 (<3.5-35.0) ng/L C-Reactive Protein (< or = 0.50) mg/dL Total Protein (6.5-8.0) g/dL Albumin (3.5-5.0) g/dL Lipase (8-78) U/L Procalcitonin ng/mL TSH (0.32-4.0) uIU/mL Salicylates (15-30) mg/dL Acetaminophen (<30) mcg/mL Ethyl Alcohol mg/dL COVID-19 (GEN) (Negative) COVID-19 Clin Com 02/10/21 02/10/21 Range/Units 11:51 11:51 WBC (4.8-10.8) X10*3/uL RBC (4.60-5.80) X10*6/uL Hgb (14.0-18.0) g/dl Hct (42.0-52.0) % MCV (80.0-98.0) fL MCH (27.0-33.0) pg MCHC (31.0-36.0) g/dl RDW (11.0-16.0) % Plt Count (160-400) X10*3/uL MPV (9.4-12.4) fL Immature Gran % (Auto) (0.0-0.4) % Neut % (Auto) (45-73) % Lymph % (Auto) (20-40) % Dickey % (Auto) (2-11) % Eos % (Auto) (0-4) % Baso % (Auto) (0-2) % Lymph # (Auto) (1.2-4.9) X10*3/uL Dickey # (Auto) (0.1-1.2) X10*3/uL Eos # (Auto) (0.0-0.4) X10*3/uL Baso # (Auto) (0.0-0.2) X10*3/uL Abs Immat Gran (auto) (0.00-0.03) X10*3/uL Absolute Neuts (auto) (2.0-8.3) x10*3/uL Absolute Nucleated RBC (0.0-0.012) X10*3/uL Nucleated RBC % (auto) (0.0-0.2) /100WBC PT (9.9-13.0) SEC INR (0.9-1.1) APTT (24.1-38.0) SEC VBG pH (7.32-7.43) VBG pCO2 mmHg VBG pO2 mmHg VBG HCO3 (22-26) mmol/L VBG O2 Saturation % VBG Base Excess mmol/L Sodium (135-145) mmol/L Potassium (3.3-5.1) mmol/L Chloride (96-108) mmol/L Carbon Dioxide (22-29) mmol/L Anion Gap (12-20) BUN (9-16) mg/dL Creatinine (0.5-1.4) mg/dL Estim Creat Clear Calc Estimated GFR Random Glucose (60-115) mg/dL Lactic Acid (0.5-2.0) mmol/L Calcium (8.4-10.2) mg/dL Magnesium (1.6-2.6) mg/dL Ferritin 245 (20-250) ng/mL Total Bilirubin (0.0-1.0) mg/dL Direct Bilirubin (0.0-0.5) mg/dL AST (5-37) U/L ALT (0-40) U/L Alkaline Phosphatase (39-117) U/L Lactate Dehydrogenase 217 (118-273) U/L Total Creatine Kinase (38-174) U/L Troponin I High Sens (<3.5-35.0) ng/L C-Reactive Protein 1.70 H (< or = 0.50) mg/dL Total Protein (6.5-8.0) g/dL Albumin (3.5-5.0) g/dL Lipase (8-78) U/L Procalcitonin 0.47 ng/mL TSH (0.32-4.0) uIU/mL Salicylates (15-30) mg/dL Acetaminophen (<30) mcg/mL Ethyl Alcohol mg/dL COVID-19 (GEN) (Negative) COVID-19 Clin Com ECG Data Attestation: I personally reviewed and interpreted this ECG as follows: ECG interpretation date: 02/10/21 ECG interpretation time: 07:27 Interpretation: Rate: 96 Rhythm: NSR [place]: normal Normal P waves. Normal MENDY. Normal QRS complex. ST T wave : no HIREN, normal qTC: normal prior studies: no acute ischemia The study has been interpreted contemporaneously by me. . Discharge Plan Discharge Clinical Impression: COVID-19, Pneumonia due to 2019 novel coronavirus, Hypoxia Drug overdose Qualifiers: Encounter type: initial encounter Injury intent: accidental or unintentional Qualified Code(s): T50.901A - Poisoning by unspecified drugs, medicaments and biological substances, accidental (unintentional), initial encounter Rhabdomyolysis Qualifiers: Rhabdomyolysis type: non-traumatic Qualified Code(s): M62.82 - Rhabdomyolysis Patient Disposition: Admitted As Inpatient
--- NOTE | 2021-02-10 06:34 | ECG_ITS ---
Test Reason : OVERDOSE Blood Pressure : / mmHG Vent. Rate : 096 BPM Atrial Rate : 096 BPM P-R Int : 172 ms QRS Dur : 106 ms QT Int : 352 ms P-R-T Axes : 060 029 031 degrees QTc Int : 444 ms Normal sinus rhythm Normal ECG When compared with ECG of 09-FEB-2021 21:42, No significant change was found Referred By: Marie Calderón Electronically Signed By:Gomez Cortez
[2021-02-10] MEDS: 0.9 % Sodium Chloride 1,000 ML 999 ML IVCONT ×2 (08:17→10:00)
[2021-02-10 08:38] LABS: Ethanol < 10 mg/dL
[2021-02-10 08:46] LABS: Alanine Aminotransferase 99 U/L (0-40); Albumin Level 4.5 g/dL (3.5-5.0); Alkaline Phosphatase 48 U/L (39-117); Anion Gap 10 (12-20); Aspartate Amino Transferase 64 U/L (5-37); Bilirubin Direct 0.2 mg/dL (0.0-0.5); Bilirubin Total 0.5 mg/dL (0.0-1.0); Blood Urea Nitrogen 12 mg/dL (9-16); Carbon Dioxide 31 mmol/L (22-29); Chloride 102 mmol/L (96-108); Creatinine Clr Calc Pharmacy 94.8; Estimated Glomerular Filt Rate 56; Glucose Random 127 mg/dL (60-115); Lipase 11 U/L (8-78); Magnesium 1.8 mg/dL (1.6-2.6); Potassium 4.4 mmol/L (3.3-5.1); Sodium 139 mmol/L (135-145)
[2021-02-10 08:49] LABS: MANUAL DIFF FLAG NO
[2021-02-10 08:49] LABS: Troponin-I High Sensitivity 30.8 ng/L (<3.5-35.0)
[2021-02-10 08:50] LABS: Basophils Percent Auto 0.1 % (0-2); Eosinophils Percent Auto 0.1 % (0-4); Hematocrit 42.9 % (42.0-52.0); Hemoglobin 14.8 g/dl (14.0-18.0); Imm Gran Abs Auto 0.03 X10*3/uL (0.00-0.03); Imm Gran Pct Auto 0.3 % (0.0-0.4); Lymphocytes Absolute Auto 1.5 X10*3/uL (1.2-4.9); Lymphocytes Percent Auto 15.6 % (20-40); Mean Corpuscular HGB Conc 34.5 g/dl (31.0-36.0); Mean Corpuscular Hemoglobin 30.7 pg (27.0-33.0); Mean Platelet Volume 9.6 fL (9.4-12.4); Monocytes Absolute Auto 0.6 X10*3/uL (0.1-1.2); Monocytes Percent Auto 6.5 % (2-11); Neutrophils Absolute Auto 7.2 x10*3/uL (2.0-8.3); Neutrophils Percent Auto 77.4 % (45-73); Platelet Count 211 X10*3/uL (160-400); Red Blood Count 4.82 X10*6/uL (4.60-5.80); Red Cell Distribution Width 12.5 % (11.0-16.0); White Blood Count 9.3 X10*3/uL (4.8-10.8)
[2021-02-10 08:56] LABS: Acetaminophen LAB < 1 mcg/mL (<30)
[2021-02-10 08:57] LABS: Prothrombin Time 11.8 SEC (9.9-13.0)
[2021-02-10 09:00] LABS: Partial Thromboplastin Time 29.3 SEC (24.1-38.0)
[2021-02-10 09:01] LABS: Lactic Acid 1.2 mmol/L (0.5-2.0)
[2021-02-10 09:05] LABS: COVID-19 Test Positive (Negative); IDNOW Serial# 9DD0AD1C
[2021-02-10 09:06] LABS: Salicylate < 5.0 mg/dL (15-30)
[2021-02-10 09:12] LABS: VBG HCO3 30 mmol/L (22-26); VBG pCO2 49 mmHg; VBG pH 7.38 (7.32-7.43); VBG pO2 43 mmHg
[2021-02-10 09:12] LABS: Venous Blood Gas Refer to POC result
[2021-02-10 09:25] LABS: TSH reflex Free T4 0.52 uIU/mL (0.32-4.0)
[2021-02-10 12:17] LABS: Troponin-I High Sensitivity 28.4 ng/L (<3.5-35.0)
[2021-02-10 12:31] LABS: Lactate Dehydrogenase 217 U/L (118-273)
[2021-02-10 12:38] LABS: Ferritin 245 ng/mL (20-250)
[2021-02-10] MEDS: dexAMETHasone sod phosphate 4 MG/ML VIAL 6 MG IVPUSH (12:48)
[2021-02-10] MEDS: ondansetron HCL 4 MG/2 ML VIAL IVPUSH ×2 (12:48→19:58)
[2021-02-10] MEDS: Gabapentin 600 MG TABLET PO (12:49)
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
--- NOTE | 2021-02-10 14:16 | PHA.MEDREC ---
Pharmacy Consult ? Medication Reconciliation RN completed med rec. pharmacy reviewed.
[2021-02-10 14:22] LABS: Procalcitonin 0.47 ng/mL
[2021-02-10] MEDS: Lactated Ringers 1,000 ML 100 ML IVCONT (14:35)
[2021-02-10 14:55] LABS: Anion Gap 13 (12-20); Blood Urea Nitrogen 9 mg/dL (9-16); Calcium 8.1 mg/dL (8.4-10.2); Carbon Dioxide 25 mmol/L (22-29); Chloride 106 mmol/L (96-108); Creatinine Clr Calc Pharmacy 118.5; Estimated Glomerular Filt Rate > 60; Glucose Random 107 mg/dL (60-115); Potassium 4.7 mmol/L (3.3-5.1); Sodium 139 mmol/L (135-145)
--- NOTE | 2021-02-10 14:55 | MHC.CARE ---
1300 - Call placed to pt's Ms. Donita Sanderson. Voice mail left requesting a return phone call.
[2021-02-10] MEDS: Ampicillin Sodium/Sulbactam Na 3 GM in 0.9 % Sodium Chloride 100 ML IV ×2 (17:05→23:29)
[2021-02-10] MEDS: Enoxaparin Sodium 40 MG/0.4 ML SYRINGE SUBCUT (17:05)
[2021-02-10] MEDS: ALPRAZolam 0.5 MG TABLET 1 MG PO ×2 (17:14→19:59)
--- NOTE | 2021-02-10 17:17 | PC.NURSE ---
medicated per emar, tolerating po, w/o issue. given prn for anxiety. wctm for dc needs.
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
[2021-02-10] MEDS: cloNIDine HCL 0.1 MG TABLET 0.3 MG PO (19:59)
[2021-02-10] MEDS: Gabapentin 600 MG TABLET 1200 MG PO (20:00)
[2021-02-10] MEDS: Acetaminophen 325 MG TABLET 650 MG PO (20:00)
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
[2021-02-11] VITALS (7 sets, daily range): BP systolic 108–148; BP diastolic 60–76; PULSE 38–59; RESP 8–14; TEMP 36.4–36.8; O2SAT 94–99
--- NOTE | 2021-02-11 | ECG_ITS ---
Test Reason : repeat ekg Blood Pressure : / mmHG Vent. Rate : 059 BPM Atrial Rate : 059 BPM P-R Int : 174 ms QRS Dur : 116 ms QT Int : 448 ms P-R-T Axes : 064 013 033 degrees QTc Int : 443 ms Sinus bradycardia with sinus arrhythmia Otherwise normal ECG When compared with ECG of 10-FEB-2021 07:17, Vent. rate has decreased BY 37 BPM Referred By: Nunu Greene Electronically Signed By:Gomez Cortez
--- NOTE | 2021-02-11 02:54 | PC.NURSE ---
Pt's HR has been high 40's and at times high 30's sinus roland.
--- NOTE | 2021-02-11 02:55 | PC.NURSE ---
Pt has been awake and alert, trying to sleep. Pt again refusing to give urine sample. Pt's gown and linen changed, wet with sweat.
[2021-02-11] MEDS: Ampicillin Sodium/Sulbactam Na 3 GM in 0.9 % Sodium Chloride 100 ML IV ×2 (04:50→09:54)
[2021-02-11] MEDS: ALPRAZolam 0.5 MG TABLET 1 MG PO ×2 (04:51→11:46)
--- NOTE | 2021-02-11 07:59 | PC.NURSE ---
hospitalist aware of bradycardia and rr 8-10. pt hr goes up into the 60s when waken up. pt denies any complaints.
[2021-02-11 09:09] LABS: MANUAL DIFF FLAG NO
[2021-02-11 09:10] LABS: Basophils Percent Auto 0.4 % (0-2); Hematocrit 43.7 % (42.0-52.0); Hemoglobin 14.9 g/dl (14.0-18.0); Imm Gran Abs Auto 0.01 X10*3/uL (0.00-0.03); Imm Gran Pct Auto 0.2 % (0.0-0.4); Lymphocytes Absolute Auto 1.4 X10*3/uL (1.2-4.9); Lymphocytes Percent Auto 28.2 % (20-40); Mean Corpuscular HGB Conc 34.1 g/dl (31.0-36.0); Mean Corpuscular Hemoglobin 30.4 pg (27.0-33.0); Mean Corpuscular Volume 89.2 fL (80.0-98.0); Mean Platelet Volume 9.4 fL (9.4-12.4); Monocytes Absolute Auto 0.4 X10*3/uL (0.1-1.2); Neutrophils Absolute Auto 3.1 x10*3/uL (2.0-8.3); Neutrophils Percent Auto 63.2 % (45-73); Platelet Count 177 X10*3/uL (160-400); Red Cell Distribution Width 12.7 % (11.0-16.0); White Blood Count 4.9 X10*3/uL (4.8-10.8)
[2021-02-11 09:39] LABS: Anion Gap 11 (12-20); Blood Urea Nitrogen 9 mg/dL (9-16); Calcium 8.9 mg/dL (8.4-10.2); Carbon Dioxide 29 mmol/L (22-29); Chloride 104 mmol/L (96-108); Creatinine Clr Calc Pharmacy 154.4; Estimated Glomerular Filt Rate > 60; Glucose Random 112 mg/dL (60-115); Potassium 4.3 mmol/L (3.3-5.1); Sodium 140 mmol/L (135-145)
[2021-02-11] MEDS: Gabapentin 600 MG TABLET 1200 MG PO ×2 (09:55→11:47)
[2021-02-11] MEDS: dexAMETHasone sod phosphate 4 MG/ML VIAL 6 MG IVPUSH (09:55)
--- NOTE | 2021-02-11 10:57 | PC.NURSE ---
info sent to [facility]
[2021-02-11] MEDS: Gabapentin 600 MG TABLET PO (11:50)
--- NOTE | 2021-02-11 13:12 | MHC.CM.PN ---
PATIENT LIVES WITH HIS FAMILY. NO DME OR VNA SERVICES COVID + PRECAUTIONS FOR IMM VERBAL DELIVERY. PATIENT IS NOT ABLE TO REMAIN AWAKE TO COMPLETE ASSESSMENT. HE WAS REMINDED OF HIS RIGHT OT APPEAL A HOSPITAL DISCHARGE UNDER HIS MEDICARE BENEFIT INPATIENT STATUS. DC PLAN PENDING. IMM 02/11 IN CHART
--- NOTE | 2021-02-11 13:27 | P.PNIM_ITS ---
Subjective Subjective Date of Service: 02/11/21 Interval History: seen and examined this morning follow up for covid noted to be bradycardic overnight patient awake and alert this morning denies any sob, chest pain, palpitations or dizziness. not agreeable to provide urine sample Review of Systems Review of Systems: Yes all other systems are reviewed and are negative Cardiovascular Cardiovascular: Denies chest pain, Denies lightheadedness, Denies palpitations, Denies dyspnea and Reports slow heart rate Respiratory Respiratory: Reports cough and Denies dyspnea Gastrointestinal Gastrointestinal: Denies abdominal pain Endocrine Endocrine: Denies palpitations Physical Exam Verdana 4l Vital Signs: Verdana 4d Verdana 4d Vital Signs: Verdana 4d Verdana 4Bd Last Vital Signs Verdana 4d Mine Boss New 4d Mine Boss New 4d Temp 97.8 F 02/11/21 10:28 Mine Boss New 4d Pulse 44 L 02/11/21 10:28 Mine Boss NewNew 4d Resp 9 L 02/11/21 10:28 BP 108/65 02/11/21 10:28 Pulse Ox 94 02/11/21 10:28 BMI result Body Mass Index 32.1 Const: General: comfortable, no acute distress, alert and awake Nutritional Appearance: well nourished Orientation/consciousness: patient oriented x3 HENMT: Head: Yes normocephalic and Yes atraumatic Eyes: Sclerae: sclerae normal Resp: Other: course breath sounds Effort & Inspection: normal respiratory effort and no respiratory distress Cardio: Rate: regular rate Rhythm: regular rhythm GI: Other: abdominal scars Inspection: No distended Palpation (GI): Soft to palpation and nontender Neuro: General: patient oriented x3 Cranial nerves: Yes CN's II-XII intact bilaterally and Yes Bilaterally intact EOM present Objective Data Active Medications Acetaminophen (Acetaminophen 325 Mg Tablet) 650 mg PO Q6H PRN PRN Reason: Pain, Mild (Pain Scale 1-3) Last Admin: 02/10/21 20:00 Dose: 650 mg Documented by: JASON Alprazolam (Alprazolam 0.5 Mg Tablet) 1 mg PO QID PRN PRN Reason: Anxiety Last Admin: 02/11/21 11:46 Dose: 1 mg Documented by: MORELIA Clonidine HCl (Clonidine Hcl 0.1 Mg Tablet) 0.3 mg PO BEDTIME VÍCTOR; Protocol Last Admin: 02/10/21 19:59 Dose: 0.3 mg Documented by: JASON Dexamethasone Sodium Phosphate (Dexamethasone Sod Phosphate 4 Mg/Ml Vial) 6 mg IVPUSH DAILY [facility] Last Admin: 02/11/21 09:55 Dose: 6 mg Documented by: MORELIA Docusate Sodium (Docusate Sodium 100 Mg Capsule) 100 mg PO DAILY PRN PRN Reason: Constipation Enoxaparin Sodium (Enoxaparin Sodium 40 Mg/0.4 Ml Syringe) 40 mg SUBCUT Q24H [facility] Last Admin: 02/10/21 17:05 Dose: 40 mg Documented by: MARITZA Gabapentin (Gabapentin 600 Mg Tablet) 1,200 mg PO BID [facility] Last Admin: 02/11/21 11:47 Dose: 1,200 mg Documented by: MORELIA Gabapentin (Gabapentin 600 Mg Tablet) 600 mg PO DAILY@1200 [facility] Last Admin: 02/11/21 11:50 Dose: 600 mg Documented by: MORELIA Ampicillin Sodium/Sulbactam (Sodium 3 gm/ Sodium Chloride) 100 mls @ 200 mls/hr IV Q6H [facility] Last Infusion: 02/11/21 10:33 Dose: 0 mls/hr Documented by: MORELIA Ondansetron HCl (Ondansetron Hcl 4 Mg/2 Ml Vial) 4 mg IVPUSH Q8H PRN PRN Reason: Nausea and Vomiting Last Admin: 02/10/21 19:58 Dose: 4 mg Documented by: JASON Sodium Chloride (0.9 % Sodium Chloride Flush 3 Ml Syringe) 3 ml IVFLUSH QSHIFT [facility] Last Admin: 02/11/21 08:01 Dose: Not Given Documented by: MORELIA Non-Admin Reason: Patient Asleep Labs CBC & Chem 7: 02/11/21 09:00 02/11/21 09:00 Labs: Laboratory Results - last 24 hr 02/10/21 02/10/21 02/10/21 11:51 11:51 14:30 MCV MCH MCHC RDW Plt Count MPV Immature Gran % (Auto) Neut % (Auto) Lymph % (Auto) [place] % (Auto) Eos % (Auto) Baso % (Auto) Lymph # (Auto) [place] # (Auto) Eos # (Auto) Baso # (Auto) Abs Immat Gran (auto) Absolute Neuts (auto) Absolute Nucleated RBC Nucleated RBC % (auto) Anion Gap 13 Estim Creat Clear Calc 118.5 Estimated GFR > 60 Random Glucose 107 Calcium 8.1 L D Total Creatine Kinase C-Reactive Protein 1.70 H Procalcitonin 0.47 02/11/21 02/11/21 09:00 09:00 MCV 89.2 MCH 30.4 MCHC 34.1 RDW 12.7 Plt Count 177 MPV 9.4 Immature Gran % (Auto) 0.2 Neut % (Auto) 63.2 Lymph % (Auto) 28.2 [place] % (Auto) 8.0 Eos % (Auto) 0.0 Baso % (Auto) 0.4 Lymph # (Auto) 1.4 [place] # (Auto) 0.4 Eos # (Auto) 0.0 Baso # (Auto) 0.0 Abs Immat Gran (auto) 0.01 Absolute Neuts (auto) 3.1 Absolute Nucleated RBC 0.000 Nucleated RBC % (auto) 0.0 Anion Gap 11 L Estim Creat Clear Calc 154.4 Estimated GFR > 60 Random Glucose 112 Calcium 8.9 D Total Creatine Kinase 671 H C-Reactive Protein Procalcitonin Microbiology Microbiology Results: Microbiology 02/10/21 08:41 Blood Culture - Preliminary Blood - Venous No growth after 24 hours. 02/10/21 08:20 Blood Culture - Preliminary Blood - Venous No growth after 24 hours. Assessment and Plan (1) COVID-19: Status: Acute (2) Drug overdose: Status: Acute (3) Rhabdomyolysis: Status: Acute (4) Pneumonia due to 2019 novel coronavirus: Status: Acute (5) Bradycardia: Status: Acute Assessment and Plan: This is a 41-year-old male with history of TBI, PTSD, anxiety, history of substance abuse brought to the emergency department after being found unresponsive requiring CPR and Narcan for the 2nd time in 24 hours also found to have COVID-19 pneumonia Acute respiratory failure with hypoxia secondary to COVID pneumonia o2 saturation 89% on RA. Symptoms since 02/05, initially tested positive 02/08 pt unvaccinated possible component of aspiration, will add procalcionin, if elevated will add antibiotics IV decadron for 10 days mild transaminitis, not candidate for remdecivir ID consult bradycardia asymptomatic will obtain EKG may need to decrease/discontinue clonidine substance abuse two drug overdoses requiring CPR and narcan within 24 hours tox screen pending, pt not agreeable to provide urine sample section 12 signed in ED care team consult crisis eval when medically cleared mild rhabdomyolysis cpk 1017, down to 671 with IVF mood continue xanax, clonidine neuropathy/pain continue gabapentin transient episode of afib in 2019 occurred in the setting of drug OD not anticoagulated h/o PE s/p IVC filter hypoxia explained by covid 19 but if worsens can consider CTA to rule out acute PE dvt ppx - lovenox attending - dr. edward dispo - under section 12, can not leave AMA unless cleared by crisis Quality Stroke Does the patient have a stroke diagnosis?: No VTE Prior VTE?: No VTE Risk Level:: Medical - moderate - high VTE Device Contraindication: Treatment Not Indicated VTE Drug Contraindication: N/A - Med Ordered
--- NOTE | 2021-02-11 14:36 | PC.NURSE ---
[facility] here to evolya pt
--- NOTE | 2021-02-11 16:18 | PC.NURSE ---
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
== END 2021-02-11 23:25 | disposition home or self-care (01) | DRG 917 ==
LOC: HO.ED 11:25 → HO.EDOVER 13:59
PROVIDERS: Admitting Provider Physician Assistant Medical; Emergency Provider Emergency Medicine; Visit Provider Physician Assistant Medical
DX: T50.901A Poisoning by unspecified drugs, medicaments and biological substances, accidental (unintentional), initial encounter (principal); U07.1 COVID-19; J12.82 Pneumonia due to coronavirus disease 2019; J96.01 Acute respiratory failure with hypoxia; M62.82 Rhabdomyolysis; Z86.711 Personal history of pulmonary embolism; G62.9 Polyneuropathy, unspecified; Y92.9 Unspecified place or not applicable; R00.1 Bradycardia, unspecified; F43.10 Post-traumatic stress disorder, unspecified; Z95.828 Presence of other vascular implants and grafts; Z87.820 Personal history of traumatic brain injury; Z79.899 Other long term (current) drug therapy
CPT/HCPCS: 36415; 70450; 71045; 71250; 80048; 80076; 80143; 80179; 82077; 82550; 82728; 82803; 83605; 83615; 83690; 83735; 84145; 84443; 84484; 85025; 85610; 85730; 86140; 87040; 87635; 93005; 99283; 99285; J0295; J1100; J1650; J2405